=== PATIENT | female | born 1950 | race Caucasian/White ===

== ENCOUNTER 2020-02-10 15:24 | Outpatient (REF) | payer OTHER, SELFPAY ==
[2020-02-10 16:28] LABS: COVID-19 Test Positive (Negative)
== END 2020-02-10 15:25 | disposition home or self-care (01) ==
LOC: HO.LAB 15:24
PROVIDERS: Visit Provider Internal Medicine
DX: Z20.828 Contact with and (suspected) exposure to other viral communicable diseases (principal)
CPT/HCPCS: 87635

== ENCOUNTER → 2020-05-17 08:24 | Outpatient (REF) | payer OTHER, SELFPAY ==
--- NOTE | 2020-05-17 08:29 | CA_ITS ---
Transthoracic Echocardiogram Patient (Last, First, Middle): Kimmy Rios J Gender: Female Date of : 1950 Age: 69 Procedure Date: 05/17/2020 Procedure Type: Transthoracic Echocardiogram Location: OP Height: 170.18 cm Weight: 76.2 kg BSA: 1.88 m2 Heart Rate: bpm BP: 132 / 72 mmHg Wire Weaving Loom Setter: CARLA Referring MD: Asha Anders MD Symptoms: R06.02 - Shortness of breath Study Quality: Fair ECG Rhythm: Sinus Conclusions: - The left ventricular systolic function is normal. The visually estimated ejection fraction is between 55-60%. - There is mild calcification of the aortic valve. - There is mild anterior mitral leaflet thickening. Findings Left Ventricle Normal left ventricular cavity size. There is normal left ventricular wall thickness. The left ventricular systolic function is normal. The visually estimated ejection fraction is between 55-60%. There is no evidence of regional wall motion abnormalities. Diastolic function is normal for age. Right Ventricle Normal right ventricular cavity size and systolic function. Atria Both atria are normal in size. Aortic Valve There is a normal trileaflet aortic valve. There is mild calcification of the aortic valve. There is no aortic valve stenosis. There is trace (trivial) aortic valve regurgitation. Mitral Valve There is mild anterior mitral leaflet thickening. There is trace mitral valve regurgitation. There is no mitral valve stenosis. Pulmonic Valve The pulmonic valve was not well visualized. Tricuspid Valve Normal tricuspid valve structure. There is trace tricuspid valve regurgitation. The pulmonary artery systolic pressure is normal. Great Vessels The aortic annulus, sinuses of valsalva, asc aorta, and aortic arch are normal in size. Venous The inferior vena cava is normal in size and collapses greater than 50% with inspiration. Pericardium/Pleural There is no evidence of pericardial effusion. Prior Study Comparison No prior study available for comparison. Measurements 2D Linear Measurements IVSd: 0.91 0.6-0.9/0.6-1.0 cm LVIDd: 3.82 3.9-5.3/4.2-5.9 cm LVIDd Index: 2.03 2.4-3.2/2.2-3.1 cm/m2 LVIDs: 2.32 2.0-3.6 cm LVPWd: 0.92 0.7-1.1 cm Ao Root: 3.90 2.1-3.5 cm LA Diam: 3.30 2.7-3.8/3.0-4.0 cm LAIDs Index: 1.76 1.5-2.3 cm/m2 LV Mass: 129.21 67-162/88-224 g LV Mass Index: 68.73 43-95/49-115 g/m2 LVOT Diam: 2.00 3.0+(-)1.3 cm 2D Systolic Function EF 4C: 56.70 >55% EF 2C: 61.70 >55% EF BiP: 60.00 >55% Mitral Valve E'Lateral: 7.94 E'Medial: 7.45 Aortic Valve AoV Pk Tommy: 1.42 AoV Mn Tommy: 0.96 AoV VTI: 0.29 AoV Pk Grad: 8.00 Aov Mn Grad: 4.00 GIRMA Cont.VTI: 2.43 LVOT LVOT Pk Tommy: 0.98 LVOT Mn Tommy: 0.64 LVOT VTI: 0.23 LVOT Pk Grad: 4.00 LVOT Mn Grad: 2.00 LVOT Diam: 2.00 LVOT Area: 3.14 Diastolic Function E'Medial: 7.45 E' Laterial: 7.94 Tricuspid Valve TR Pk Tommy: 2.19 TR Pk Grad: 19.00 RA Press: 3.00 RVSP: 22.00 Great Vessels Aorta Ao Root-2D: 3.90 2.0-3.7 cm Ao Asc: 3.50 2.1-3.4 cm Ao Arch: 2.50 Updated in Other Vendor System with Status of Final Cruz Carr MD electronically signed on 05/17/2020 12:50:44 PM with status of Final
--- NOTE | 2020-05-17 08:40 | XR_ITS ---
EXAMINATION: XR CHEST CLINICAL INFORMATION: Shortness of breath COMPARISON: None TECHNIQUE: Frontal view of the chest was obtained. FINDINGS: The lungs are clear. There is no airspace elevation or groundglass opacity. No effusion. The heart is normal in size. The vascularity is unremarkable. No pneumothorax. The hilar contours and mediastinal contours are unremarkable. There are degenerative changes thoracic and upper lumbar spine. XR/XR chest 1V IMPRESSION: Unremarkable examination.
[2020-05-17 09:10] LABS: MANUAL DIFF FLAG NO
[2020-05-17 09:14] LABS: Basophils Absolute Auto 0.1 X10*3/uL (0.0-0.2); Basophils Percent Auto 1.1 % (0-2); Eosinophils Absolute Auto 0.4 X10*3/uL (0.0-0.4); Eosinophils Percent Auto 7.1 % (0-4); Hematocrit 42.2 % (37-47); Hemoglobin 14.3 g/dl (12.0-16.0); Imm Gran Abs Auto 0.03 X10*3/uL (0.00-0.03); Imm Gran Pct Auto 0.6 % (0.0-0.4); Lymphocytes Absolute Auto 1.7 X10*3/uL (1.2-4.9); Lymphocytes Percent Auto 32.6 % (20-40); Mean Corpuscular HGB Conc 33.9 g/dl (31.0-35.0); Mean Corpuscular Hemoglobin 33.6 pg (27.0-33.0); Mean Corpuscular Volume 99.3 fL (80-98); Mean Platelet Volume 9.2 fL (9.4-12.3); Monocytes Absolute Auto 0.4 X10*3/uL (0.1-1.2); Monocytes Percent Auto 7.3 % (2-11); Neutrophils Absolute Auto 2.7 X10*3/uL (2.0-8.3); Neutrophils Percent Auto 51.3 % (45-73); Platelet Count 168 X10*3/uL (160-400); Red Blood Count 4.25 X10*6/uL (4.20-5.50); Red Cell Distribution Width 12.3 % (11.0-16.0); White Blood Count 5.2 X10*3/uL (4.8-10.8)
[2020-05-17 09:30] LABS: Estimated Average Glucose 94 mg/dL; Hemoglobin A1c % 4.9 %
[2020-05-17 09:43] LABS: Alanine Aminotransferase 28 U/L (0-31); Albumin Level 4.5 g/dL (3.5-5.0); Alkaline Phosphatase 72 U/L (39-117); Anion Gap 12 (12-20); Aspartate Amino Transferase 23 U/L (5-31); Bilirubin Total 0.7 mg/dL (0.0-1.0); Blood Urea Nitrogen 15 mg/dL (9-16); Carbon Dioxide 29 mmol/L (22-29); Chloride 105 mmol/L (96-108); Cholesterol 213 mg/dL; Estimated Glomerular Filt Rate > 60; Glucose Fasting 103 mg/dL (60-99); HDL Cholesterol 63 mg/dL; LDL Cholesterol Calculated 121 mg/dl; Sodium 142 mmol/L (135-145); Total Protein 6.7 g/dL (6.5-8.0); Triglycerides 148 mg/dL
[2020-05-17 10:04] LABS: Thyroid Stimulating Hormone 4.36 uIU/mL (0.32-4.0)
--- NOTE | 2020-05-17 17:35 | PFT_ITS ---
FLOWS: FEV1 of 98% of predicted at 2.56 L. FVC 87% of predicted at 2.99 L. FEV1 to FVC ratio of 0.86. No bronchodilator response except in small to medium airways. LUNG VOLUMES: Total lung capacity 89% of predicted at 4.92 L. Residual volume 89% of predicted at 2.08 L. Slow vital capacity 88% of predicted at 2.84 L. Expiratory reserve volume 24% of predicted at 0.21 L. Diffusion capacity is mildly decreased. IMPRESSION: No obstructive or restrictive ventilatory defect. No bronchodilator response except in small to medium airways. Decreased diffusion capacity suggests emphysema. MD FRANKLYN Campo/MODL / [id number]
== END ==
LOC: HO.CARD 08:24
PROVIDERS: PCP Internal Medicine; Visit Provider Internal Medicine
DX: J44.9 Chronic obstructive pulmonary disease, unspecified (principal); U07.1 COVID-19; E78.00 Pure hypercholesterolemia, unspecified; I10 Essential (primary) hypertension
CPT/HCPCS: 36415; 71045; 80053; 80061; 83036; 84443; 85025; 93306; 94060; 94727; 94729

== ENCOUNTER 2020-08-03 08:32 | Outpatient (REF) | payer MEDICARE, SELFPAY ==
[2020-08-03 12:15] LABS: TSH reflex Free T4 4.13 uIU/mL (0.32-4.0)
[2020-08-03 12:20] LABS: Iron 79 mcg/dL (30-160); Percent Iron Saturation 29 % (15-50); Total Iron Binding Capacity 277 mcg/dL (228-428); Unsaturated Iron Binding 198 ug/dL
== END 2020-08-03 08:33 | disposition home or self-care (01) ==
LOC: HO.HMGCLDS 08:32
PROVIDERS: PCP Internal Medicine; Visit Provider Internal Medicine
DX: E03.9 Hypothyroidism, unspecified (principal); E78.00 Pure hypercholesterolemia, unspecified; I10 Essential (primary) hypertension; J44.9 Chronic obstructive pulmonary disease, unspecified; R06.02 Shortness of breath
CPT/HCPCS: 36415; 83540; 84439; 84443

== ENCOUNTER 2020-09-26 08:06 | Outpatient (REF) | payer MEDICARE, SELFPAY ==
--- NOTE | ~2020-09-26 | MM_ITS ---
EXAMINATION: MM SCREENING DIGITAL BREAST TOMOSYNTHESIS, BILATERAL CLINICAL INFORMATION: Screening. Asymptomatic. The lifetime risk of breast cancer based on the Tyrer-Cuzick Model is 7%. COMPARISON: Mammography: 11/26/2018, 04/16/2012 TECHNIQUE: Digital breast tomosynthesis is performed in both the craniocaudal and mediolateral oblique views along with computer-aided detection (CAD). Synthesized 2D images are generated from the tomosynthesis. FINDINGS: There are scattered areas of fibroglandular density (ACR BI-RADS breast composition Category b). There are no significant masses, abnormal calcifications, or other abnormalities. Parenchymal pattern is similar to prior exams. Scattered minor asymmetries are stable. No developing density. The axilla and skin contours are unremarkable. MM/MM tomosynthesis screening BI IMPRESSION: No mammographic evidence of malignancy. ASSESSMENT: BI-RADS 2: Benign RECOMMENDATION: Routine annual mammography screening. This patient's information was entered into a reminder system with a target due date for their next mammogram.
== END 2020-09-26 08:07 | disposition home or self-care (01) ==
LOC: HO.MAMMO 08:06
PROVIDERS: PCP Internal Medicine; Visit Provider Internal Medicine
DX: Z12.31 Encounter for screening mammogram for malignant neoplasm of breast (principal)
CPT/HCPCS: 77063; 77067

== ENCOUNTER 2020-10-31 17:56 | Emergency (ER) | payer OTHER, MEDICARE, SELFPAY ==
[2020-10-31 19:42] VITALS: BP 177/71; PULSE 73; RESP 16; TEMP 36.6; O2SAT 93; BMI 27.1
--- NOTE | 2020-10-31 20:27 | ED_ITS ---
HPI - Animal Bite General Chief Complaint: Animal Bite Stated Complaint: dog bite Time Seen by Provider: 10/31/20 20:22 Source: patient Mode of arrival: ambulatory History of Present Illness HPI narrative: 61-year-old female with a past medical history of arthritis, COPD, depression, HTN, HLD, hypothyroid, presenting to the ED complaining dog bite to right arm/right leg around 12:00 p.m. today. Reports was going to client's house when dog jumped on/attacked her. Per client dog is up-to-date on all vaccinations. Patient's tetanus is unknown. Denies fever, chills complaint: animal bite Related Data Home Medications Medication Instructions Recorded Confirmed omeprazole 20 mg capsule,delayed 20 mg PO DAILY 02/12/20 08/03/20 release Previous Rx's Medication Instructions Recorded lisinopril 10 mg tablet 10 mg PO DAILY #90 tab 02/01/20 albuterol sulfate 90 mcg/actuation 2 puff INHALATION Q6H PRN #6.7 g 02/12/20 aerosol inhaler citalopram 40 mg tablet 40 mg PO DAILY #90 tab 05/03/20 budesonide-formoterol HFA 80 2 puff INHALATION BID 30 Days 05/25/20 mcg-4.5 mcg/actuation aerosol #10.2 g inhaler atorvastatin 40 mg tablet 40 mg PO DAILY #90 tab 05/27/20 meloxicam 15 mg tablet 15 mg PO DAILY #90 tab 07/25/20 amoxicillin-pot clavulanate 1 tab PO Q12H 7 Days #14 tab 10/31/20 [Augmentin] Allergies Allergy/AdvReac Type Severity Reaction Status Date / Time Sulfa (Sulfonamide Allergy Mild RASH Verified 10/31/20 19:52 Antibiotics) [Sulfa (Sulfonamides)] Review of Systems Review of Systems: Constitutional: No Fever, No Chills Musculoskeletal: + joint pain, No Myalgias, No Joint Swelling Skin: + Skin Lesions, No rash Neuro: No Weakness, No Numbness, No Paresthesias Yes all other systems are reviewed and are negative [facility] Past Medical History Attestation statement: The following information was validated with the patient. Medical History (Updated 10/31/20 @ 20:35 by NALLELY Mahmood) Arthritis COPD (chronic obstructive pulmonary disease) COVID-19 virus detected Depression HTN (hypertension) Hypercholesteremia Hypothyroidism Left shoulder tendinitis SOB (shortness of breath) Surgical History H/O colonoscopy History of bunionectomy History of cataract surgery History of tonsillectomy S/P foot surgery Family History Family History (Updated 02/10/20 @ 08:38 by Sosa Nguyen, ROEL, SUCTION DRUM DRIER OPERATOR) Father Heart disease Diabetes mellitus Mother HTN (hypertension) ESRD (end stage renal disease) Maternal Grandmother Breast cancer Sister IDDM (insulin dependent diabetes mellitus) Social History Social History (Updated 02/12/20 @ 08:06 by Archana Wiley RN) Advance Directives: No Advance Directives Information Provided: Yes Physical Exam Vital Signs: Vital Signs: Last Vital Signs Temp 97.8 F 10/31/20 19:42 Pulse 73 10/31/20 19:42 Resp 16 10/31/20 19:42 BP 177/71 H 10/31/20 19:42 Pulse Ox 93 10/31/20 19:42 Body Mass Index 27.1 Const: General: cooperative, healthy appearing and no acute distress Orientation/consciousness: patient oriented x3 Limitations: no limitations HENMT: Head: Yes normal to inspection Ears: hearing grossly normal bilaterally General nose exam: Normal external nose present Face and sinus: Yes normal facial exam Eyes: General: appearance normal, both eyes and all related structures EOM: EOMs intact bilaterally Neck: Neck: Yes normal visual inspection Resp: Effort & Inspection: normal respiratory effort Cardio: Rate: regular rate Skin: Other: + puncture wound/small laceration noted to right forearm with small ecchymosis + flap laceration noted to right young Ecchymosis noted to right thigh Rashes: no rashes Neuro: General: patient oriented x3, tone normal and moves all extremities Gait exam (Neuro): Normal gait present Extrem: General: Yes normal to inspection MDM - Animal Bite MDM Narrative Medical decision making narrative: 61-year-old female with a past medical history of arthritis, COPD, depression, HTN, HLD, hypothyroid, presenting to the ED complaining dog bite to right arm/right leg around 12:00 p.m. today. On exam VS as, NAD/well-appearing, physical exam as above. Will clean wounds with Betadine, dress with bacitracin/nonstick, update patient's tetanus and prescribed Augmentin. Dog is up-to-date on vaccinations Discharge Plan Discharge Clinical Impression: Dog bite Patient Disposition: Home, Self-Care Instructions: Animal Bite (ED) Additional Instructions: We updated her tetanus today in the emergency department Augmentin is an antibiotic please take as prescribed It is important to verify the dog is up-to-date on rabies vaccinations If her dog bites/scratches begin to look infected, red, they have pus drainage, or you develop fever please return to the ED Keep areas clean, apply bacitracin or Neosporin Prescriptions: New amoxicillin-pot clavulanate [Augmentin] 875-125 mg tablet 1 tab PO Q12H 7 Days Qty: 14 RF: 0 No Action lisinopril 10 mg tablet 10 mg PO DAILY Qty: 90 RF: 2 citalopram 40 mg tablet 40 mg PO DAILY Qty: 90 RF: 3 atorvastatin 40 mg tablet 40 mg PO DAILY Qty: 90 RF: 3 meloxicam 15 mg tablet 15 mg PO DAILY Qty: 90 RF: 0 omeprazole 20 mg capsule,delayed release(DR/EC) 20 mg PO DAILY RF: 0 albuterol sulfate [ProAir HFA] 90 mcg/actuation HFA aerosol inhaler 2 puff inhalation Q6H PRN (Reason: shortness of breath or wheezing) Qty: 6.7 RF: 3 budesonide-formoterol [Symbicort] 80-4.5 mcg/actuation HFA aerosol inhaler 2 puff inhalation BID 30 Days Qty: 10.2 RF: 4 Referrals: Asha Anders MD [Primary Care Provider] - 1 week
[2020-10-31] MEDS: Amoxicillin/Potassium Clav 875 MG TABLET PO (21:01)
[2020-10-31] MEDS: Diphth,Pertus(ACell),Tet Adult 0.5 ML SYRINGE IM (21:01)
== END 2020-10-31 21:26 | disposition home or self-care (01) ==
PROVIDERS: Emergency Provider Internal Medicine; PCP Internal Medicine
DX: S41.151A Open bite of right upper arm, initial encounter (principal); S70.11XA Contusion of right thigh, initial encounter; M79.601 Pain in right arm; M79.651 Pain in right thigh; W54.0XXA Bitten by dog, initial encounter; Y93.9 Activity, unspecified; Y92.009 Unspecified place in unspecified non-institutional (private) residence as the place of occurrence of the external cause; Y99.9 Unspecified external cause status; Z79.899 Other long term (current) drug therapy
CPT/HCPCS: 90471; 90715; 99283; 99284

== ENCOUNTER 2021-02-24 07:13 | Outpatient (REF) | payer MEDICARE, SELFPAY ==
[2021-02-24 12:15] LABS: Alanine Aminotransferase 25 U/L (0-31); Albumin Level 4.4 g/dL (3.5-5.0); Alkaline Phosphatase 75 U/L (39-117); Anion Gap 11 (12-20); Aspartate Amino Transferase 20 U/L (5-31); Bilirubin Total 0.9 mg/dL (0.0-1.0); Blood Urea Nitrogen 13 mg/dL (9-16); Calcium 8.6 mg/dL (8.4-10.2); Carbon Dioxide 27 mmol/L (22-29); Chloride 106 mmol/L (96-108); Cholesterol 210 mg/dL; Estimated Glomerular Filt Rate > 60; Glucose Fasting 107 mg/dL (60-99); HDL Cholesterol 59 mg/dL; LDL Cholesterol Calculated 107 mg/dl; Potassium 4.1 mmol/L (3.3-5.1); Sodium 140 mmol/L (135-145); Total Protein 6.4 g/dL (6.5-8.0); Triglycerides 224 mg/dL
[2021-02-24 12:29] LABS: TSH reflex Free T4 6.94 uIU/mL (0.32-4.0)
[2021-02-24 13:11] LABS: Free T4 (Free Thyroxine) 0.84 ng/dL (0.71-1.85)
== END 2021-02-24 07:14 | disposition home or self-care (01) ==
LOC: HO.HMGCLDS 07:13
PROVIDERS: PCP Internal Medicine; Visit Provider Internal Medicine
DX: E03.9 Hypothyroidism, unspecified (principal); J44.9 Chronic obstructive pulmonary disease, unspecified; I10 Essential (primary) hypertension
CPT/HCPCS: 36415; 80053; 80061; 84439; 84443

== ENCOUNTER 2021-05-19 14:07 | Outpatient (REF) | payer MEDICARE, SELFPAY ==
[2021-05-19 16:59] LABS: TSH reflex Free T4 3.45 uIU/mL (0.32-4.0)
== END 2021-05-19 14:08 | disposition home or self-care (01) ==
LOC: HO.HMGCLDS 14:07
PROVIDERS: Visit Provider Internal Medicine
DX: E03.9 Hypothyroidism, unspecified (principal)
CPT/HCPCS: 36415; 84443

== ENCOUNTER 2021-06-01 14:35 | Outpatient (REF) | payer MEDICARE, SELFPAY ==
--- NOTE | ~2021-06-01 | XR_ITS ---
EXAMINATION: AP BILATERAL KNEE AND RIGHT KNEE. CLINICAL INFORMATION: Pain right knee. COMPARISON: None TECHNIQUE: AP bilateral knee 1 view standing. Right knee 2 views. FINDINGS: AP BILATERAL KNEE: There is severe loss of medial compartment right knee and mild to moderate loss of medial and lateral compartment left knee. Mild periarticular spurring lateral compartment left knee and medial compartment right knee is noted. RIGHT KNEE: There is mild loss of patellofemoral compartment joint space right knee with inferior periarticular spurring. There is mild suprapatellar joint effusion. No loose body seen. XR/XR knee RT 2V IMPRESSION: Mild degenerative changes patellofemoral compartment. Mild suprapatellar joint effusion is noted.
--- NOTE | ~2021-06-01 | XR_ITS ---
EXAMINATION: AP BILATERAL KNEE AND RIGHT KNEE. CLINICAL INFORMATION: Pain right knee. COMPARISON: None TECHNIQUE: AP bilateral knee 1 view standing. Right knee 2 views. FINDINGS: AP BILATERAL KNEE: There is severe loss of medial compartment right knee and mild to moderate loss of medial and lateral compartment left knee. Mild periarticular spurring lateral compartment left knee and medial compartment right knee is noted. RIGHT KNEE: There is mild loss of patellofemoral compartment joint space right knee with inferior periarticular spurring. There is mild suprapatellar joint effusion. No loose body seen. XR/XR knee standing BI IMPRESSION: Mild degenerative changes patellofemoral compartment. Mild suprapatellar joint effusion is noted.
== END 2021-06-01 14:36 | disposition home or self-care (01) ==
LOC: HO.HOSX 14:35
PROVIDERS: Visit Provider Physician Assistant
DX: M17.11 Unilateral primary osteoarthritis, right knee (principal)
CPT/HCPCS: 20610; 73560; 73565; 99202; J1040

== ENCOUNTER → 2021-07-13 09:45 | Outpatient (BNVA) | payer MEDICARE, SELFPAY | PROVIDERS: PCP Internal Medicine; Visit Provider Physician Assistant | DX: M17.11 Unilateral primary osteoarthritis, right knee (principal) | CPT/HCPCS: 99212 ==

== ENCOUNTER 2021-11-30 06:28 | Outpatient (REF) | payer MEDICARE, SELFPAY ==
[2021-11-30 11:33] LABS: MANUAL DIFF FLAG NO
[2021-11-30 11:49] LABS: Basophils Absolute Auto 0.1 X10*3/uL (0.0-0.2); Eosinophils Absolute Auto 0.4 X10*3/uL (0.0-0.4); Eosinophils Percent Auto 6.8 % (0-4); Hematocrit 42.3 % (37.0-47.0); Hemoglobin 14.4 g/dl (12.0-16.0); Imm Gran Abs Auto 0.06 X10*3/uL (0.00-0.03); Lymphocytes Absolute Auto 1.5 X10*3/uL (1.2-4.9); Lymphocytes Percent Auto 24.4 % (20-40); Mean Corpuscular Hemoglobin 33.8 pg (27.0-33.0); Mean Corpuscular Volume 99.3 fL (80.0-98.0); Mean Platelet Volume 9.1 fL (9.4-12.3); Monocytes Absolute Auto 0.4 X10*3/uL (0.1-1.2); Neutrophils Absolute Auto 3.6 x10*3/uL (2.0-8.3); Neutrophils Percent Auto 59.8 % (45-73); Platelet Count 175 X10*3/uL (160-400); Red Blood Count 4.26 X10*6/uL (4.20-5.50); Red Cell Distribution Width 12.6 % (11.0-16.0)
[2021-11-30 12:28] LABS: Alanine Aminotransferase 22 U/L (0-31); Albumin Level 4.2 g/dL (3.5-5.0); Alkaline Phosphatase 69 U/L (39-117); Anion Gap 14 (12-20); Aspartate Amino Transferase 15 U/L (5-31); Bilirubin Total 0.9 mg/dL (0.0-1.0); Blood Urea Nitrogen 16 mg/dL (9-16); Calcium 8.9 mg/dL (8.4-10.2); Carbon Dioxide 28 mmol/L (22-29); Chloride 103 mmol/L (96-108); Cholesterol 235 mg/dL; Estimated Glomerular Filt Rate > 60; Glucose Fasting 94 mg/dL (60-99); HDL Cholesterol 64 mg/dL; LDL Cholesterol Calculated 125 mg/dl; Sodium 141 mmol/L (135-145); Total Protein 6.3 g/dL (6.5-8.0); Triglycerides 232 mg/dL
[2021-11-30 12:29] LABS: TSH reflex Free T4 6.25 uIU/mL (0.32-4.0)
[2021-11-30 13:19] LABS: Free T4 (Free Thyroxine) 0.97 ng/dL (0.71-1.85)
== END 2021-11-30 06:29 | disposition home or self-care (01) ==
LOC: HO.HMGCLDS 06:28
PROVIDERS: PCP Internal Medicine; Visit Provider Internal Medicine
DX: E03.9 Hypothyroidism, unspecified (principal); E78.00 Pure hypercholesterolemia, unspecified; I10 Essential (primary) hypertension
CPT/HCPCS: 36415; 80053; 80061; 84439; 84443; 85025

== ENCOUNTER 2022-01-19 07:38 | Outpatient (REF) | payer MEDICARE, SELFPAY ==
[2022-01-19 12:44] LABS: Alanine Aminotransferase 44 U/L (0-31); Albumin Level 4.6 g/dL (3.5-5.0); Alkaline Phosphatase 75 U/L (39-117); Anion Gap 14 (12-20); Aspartate Amino Transferase 26 U/L (5-31); Bilirubin Total 0.6 mg/dL (0.0-1.0); Blood Urea Nitrogen 12 mg/dL (9-16); Calcium 9.4 mg/dL (8.4-10.2); Carbon Dioxide 28 mmol/L (22-29); Chloride 103 mmol/L (96-108); Cholesterol 237 mg/dL; Estimated Glomerular Filt Rate > 60; Glucose Fasting 107 mg/dL (60-99); HDL Cholesterol 63 mg/dL; LDL Cholesterol Calculated 140 mg/dl; Potassium 4.2 mmol/L (3.3-5.1); Sodium 141 mmol/L (135-145); Total Protein 6.7 g/dL (6.5-8.0); Triglycerides 171 mg/dL
[2022-01-19 12:52] LABS: TSH reflex Free T4 3.28 uIU/mL (0.32-4.0)
[2022-01-19 13:11] LABS: Folate > 20.0 ng/mL (> or = 4.0); Vitamin B12 386 pg/mL (200-900)
== END 2022-01-19 07:39 | disposition home or self-care (01) ==
LOC: HO.HMGCLDS 07:38
PROVIDERS: PCP Internal Medicine; Visit Provider Internal Medicine
DX: Z00.00 Encounter for general adult medical examination without abnormal findings (principal); E78.00 Pure hypercholesterolemia, unspecified; I10 Essential (primary) hypertension; E53.8 Deficiency of other specified B group vitamins; E03.9 Hypothyroidism, unspecified
CPT/HCPCS: 36415; 80053; 80061; 82607; 82746; 84443

== ENCOUNTER → 2022-05-04 11:41 | Outpatient (BNVA) | payer MEDICARE, SELFPAY | PROVIDERS: PCP Internal Medicine; Visit Provider Orthopaedic Surgery | DX: M17.11 Unilateral primary osteoarthritis, right knee (principal) | CPT/HCPCS: 20610; 99212; J1100 ==

== ENCOUNTER 2022-07-25 07:18 | Outpatient (REF) | payer MEDICARE, SELFPAY ==
[2022-07-25 11:12] LABS: MANUAL DIFF FLAG NO
[2022-07-25 11:50] LABS: Basophils Absolute Auto 0.1 X10*3/uL (0.0-0.2); Basophils Percent Auto 1.1 % (0-2); Eosinophils Absolute Auto 0.3 X10*3/uL (0.0-0.4); Hematocrit 42.7 % (37.0-47.0); Hemoglobin 14.2 g/dl (12.0-16.0); Imm Gran Abs Auto 0.02 X10*3/uL (0.00-0.03); Imm Gran Pct Auto 0.4 % (0.0-0.4); Lymphocytes Absolute Auto 1.9 X10*3/uL (1.2-4.9); Lymphocytes Percent Auto 32.7 % (20-40); Mean Corpuscular HGB Conc 33.3 g/dl (31.0-35.0); Mean Corpuscular Hemoglobin 32.9 pg (27.0-33.0); Mean Corpuscular Volume 98.8 fL (80.0-98.0); Mean Platelet Volume 9.7 fL (9.4-12.3); Monocytes Absolute Auto 0.5 X10*3/uL (0.1-1.2); Monocytes Percent Auto 7.9 % (2-11); Neutrophils Percent Auto 51.9 % (45-73); Platelet Count 189 X10*3/uL (160-400); Red Blood Count 4.32 X10*6/uL (4.20-5.50); Red Cell Distribution Width 12.7 % (11.0-16.0); White Blood Count 5.7 X10*3/uL (4.8-10.8)
[2022-07-25 12:04] LABS: Alanine Aminotransferase 26 U/L (0-31); Albumin Level 4.3 g/dL (3.5-5.0); Alkaline Phosphatase 76 U/L (39-117); Anion Gap 12 (12-20); Aspartate Amino Transferase 19 U/L (5-31); Bilirubin Total 0.8 mg/dL (0.0-1.0); Blood Urea Nitrogen 15 mg/dL (9-16); Calcium 9.5 mg/dL (8.4-10.2); Carbon Dioxide 28 mmol/L (22-29); Chloride 105 mmol/L (96-108); Cholesterol 194 mg/dL; Estimated Glomerular Filt Rate > 60; Glucose Fasting 101 mg/dL (60-99); HDL Cholesterol 61 mg/dL; LDL Cholesterol Calculated 98 mg/dl; Potassium 4.2 mmol/L (3.3-5.1); Sodium 141 mmol/L (135-145); Total Protein 6.3 g/dL (6.5-8.0); Triglycerides 179 mg/dL
[2022-07-25 12:16] LABS: Folate 15.8 ng/mL (> or = 4.0); TSH reflex Free T4 5.46 uIU/mL (0.32-4.0); Vitamin B12 450 pg/mL (200-900)
[2022-07-25 12:48] LABS: Free T4 (Free Thyroxine) 0.93 ng/dL (0.71-1.85)
== END 2022-07-25 07:19 | disposition home or self-care (01) ==
LOC: HO.HMGCLDS 07:18
PROVIDERS: PCP Internal Medicine; Visit Provider Internal Medicine
DX: E03.9 Hypothyroidism, unspecified (principal); I10 Essential (primary) hypertension; E53.8 Deficiency of other specified B group vitamins; E78.00 Pure hypercholesterolemia, unspecified
CPT/HCPCS: 36415; 80053; 80061; 82607; 82746; 84439; 84443; 85025

== ENCOUNTER 2022-10-31 08:03 | Outpatient (REF) | payer MEDICARE, SELFPAY ==
[2022-10-31 12:43] LABS: TSH reflex Free T4 3.95 uIU/mL (0.32-4.0)
== END 2022-10-31 08:04 | disposition home or self-care (01) ==
LOC: HO.HMGCLDS 08:03
PROVIDERS: PCP Internal Medicine; Visit Provider Internal Medicine
DX: E03.9 Hypothyroidism, unspecified (principal)
CPT/HCPCS: 36415; 84443

== ENCOUNTER 2023-01-10 06:52 | Outpatient (REF) | payer MEDICARE, SELFPAY ==
[2023-01-10 12:31] LABS: Vitamin B12 572 pg/mL (200-900)
[2023-01-14 19:53] LABS: Glutamic acid decarboxylase Ab <5 IU/mL (<5)
== END 2023-01-10 06:53 | disposition home or self-care (01) ==
LOC: HO.HMGCLDS 06:52
PROVIDERS: PCP Internal Medicine; Visit Provider Internal Medicine
DX: H55.00 Unspecified nystagmus (principal)
CPT/HCPCS: 36415; 82607; 86255; 86341

== ENCOUNTER 2023-01-31 08:56 | Outpatient (AMB) | payer MEDICARE, SELFPAY ==
[2023-01-31 08:58] VITALS: BP 124/80; PULSE 70; O2SAT 97; BMI 26.8
--- NOTE | 2023-01-31 08:59 | AM.OFFVISMDC ---
Intake Vital Signs 01/31/23 08:58 Height 5 ft 6 in Weight 166 lb BMI 26.8 BP 124/80 Blood Pressure Location Lt brachial Position Sitting Pulse 70 Pulse Source Pulse Oximeter Pulse Oximetry (%) 97 Oxygen Delivery Method Room Air Intake Visit Reasons: AWV G0438 Intake Note: Pt is here today for AWV. Allergies Sulfa (Sulfonamide Antibiotics) Allergy (Verified 01/31/23 09:11) Rash Medication List - Last Reconciled 01/31/23 by Asha Anders MD albuterol sulfate 90 mcg/actuation 2 puffs inhalation Q6H PRN aspirin 81 mg PO DAILY atorvastatin 40 mg PO DAILY citalopram 40 mg PO DAILY levothyroxine 50 mcg PO DAILY lisinopril 5 mg PO DAILY lisinopril 10 mg PO DAILY omeprazole 20 mg PO DAILY HPI HPI Comments History of Present Illness Details Pt presents for annual. Patient has been under lot of stress related to her family situation. Her grandson living at her house and using drugs. Initiated the conversation about Advanced Directives. Advanced Directives help? patients prepare for current and future decisions about their medical treatment? and place of care. Discussed with patient that it is a process where a patients? current condition and prognosis are reviewed, their wishes for information? regarding their illness are elicited, and likely medical dilemmas are presented? and options discussed. The form can be amended as needed, reviewed yearly and? make changes as needed IPPE/AWV ? year old presents? for her ? Annual? Wellness Visit, initial visit.? Medical / Social History Reviewed? Past Medical History ?Yes? . ? [place]? of Care / Care Team list updated ?Yes . ? Surgical/Hospitalization? History ?Yes . ? Current Medications? (including OTC and supplements) ?Yes . ? Family History ?Yes? . ? Tobacco? Control form ?Yes . ? AUDIT-C (Alcohol use) form? ?Yes . ? Illicit drug use in Social? History ?Yes . ? Current diagnosis of? depression? ?No ? Appropriate PHQ2/PHQ9? completed ?Yes . ? Data entered by ?Medical? Electronic Instrument Trades Worker and reviewed by provider ? Fall Risk ? Fall? History? Have you had any falls with? injury in the past year? ?No . ? Have you had two or more? falls in the past year? ?No . ? Fall Risk Assessment: ?No? falls in the past year . ? HRA filled out by? the patient, reviewed by Provider and scanned. ? IPPE/AWV ? Balance? [place]? ?Yes . ? Tandem? walk ?Yes . ? Walk and? Turn ?Yes . ? Rise from? sit to stand ?Yes . ?Vision? Corrective? lens ?Yes ? Vision? screen ? Up-to-date, has an appointment [] for vision? screening and glaucoma screening ?Hearing? Whisper? test ?pass .? Initiated the conversation about Advanced Directives. Advanced Directives help? patients prepare for current and future decisions about their medical treatment? and place of care. Discussed with patient that it is a process where a patients? current condition and prognosis are reviewed, their wishes for information? regarding their illness are elicited, and likely medical dilemmas are presented? and options discussed. The form can be amended as needed, reviewed yearly and? make changes as needed Written? Plan?Completed. See Patient? Documents. [facility] Medical History Annual physical exam Arthritis COPD (chronic obstructive pulmonary disease) COVID-19 virus detected Depression HTN (hypertension) Hypercholesteremia Hypothyroidism Left shoulder tendinitis SOB (shortness of breath) Surgical History H/O colonoscopy History of bunionectomy History of cataract surgery History of tonsillectomy S/P foot surgery Family History Father Heart disease Diabetes mellitus Mother HTN (hypertension) ESRD (end stage renal disease) Maternal Grandmother Breast cancer Sister IDDM (insulin dependent diabetes mellitus) Son Substance use disorder Social History Housing: House Patient Tobacco Use Status: Never used Tobacco e-Cigarette/Vaping Use: Never Used Current occupational status: employed and retired Cognitive needs: No Hearing needs: No Vision needs: Yes Questionnaire Medicare Wellness Checkup [age] What gender do you identify with?: female During the past 4 weeks, how much have you been bothered by emotional problems such as feeling anxious, depressed, irritable, sad or downhearted, and blue?: slightly During the past 4 weeks, has your physical & emotional health limited your social activities with family, friends, neighbors, or groups?: slightly During the past 4 weeks, how much bodily pain have you generally had?: very mild pain During the past 4 weeks, was someone available to help you if you needed & wanted help?: yes, as much as I wanted During the past 4 weeks, what was the hardest physical activity you could do for at least 2 minutes?: moderate Can you get to places out of walking distance without help? (For eg., can you travel alone on buses, taxis or drive your car?): Yes Can you go shopping for groceries or clothes without someone's help?: Yes Can you prepare your own meals?: Yes Can you do your housework without help?: Yes Because of any health problems, do you need the help of another person with your personal care needs such as eating, bathing, dressing or getting around the house?: No Can you handle your own money without help?: Yes During the past 4 weeks, how would you rate your health in general?: very good During the past 4 weeks how have things been going for you?: good & bad parts about equal Are you having difficulties driving your car?: no Do you always fasten your seat belt when you are in a car?: yes, usually During past 4 weeks, have you been bothered by the following: never: Sexual problems?, Trouble eating well? and Problems using the telephone?, seldom: Teeth or denture problems? and sometimes: Falling or dizzy when standing up and Tiredness or fatigue? Have you fallen 2 or more times in the past year?: No Are you afraid of falling?: No Are you a smoker?: no During the past 4 weeks, how many drinks of wine, beer, or other alcoholic beverages did you have?: 6-9 drinks per week Do you exercise for about 20 minutes 3 or more times a week?: no, I usually do not exercise this much Have you been given information to help with the following?: no: Hazards in your house that might hurt you? and no: Keeping track of your medications? How often do you have trouble taking medicines the way you have been told to take them?: I always take medicine as prescribed How confident are you that you can control & manage most of your health problems?: very confident What is your race?: White Mini Mental State Exam (MMSE) Orientation What is the (year) (season) (date) (day) (month)?: year, season, date, day and month Where are we (state) (county) (town or city) (hospital) (floor)?: state, county, town or city, hospital/clinic and floor Registration Name of 3 unrelated objects clearly and slowly, then ask patient to repeat all 3 of them. (1st repeat determines score. Make sure they can repeat all three): object 1, object 2 and object 3 Attention & Calculation (CHOOSE ONE) Spell WORLD backwards (DLROW): 5 letters Recall Ask patient to repeat the 3 items from question #3.: object 1, object 2 and object 3 Language Show patient a wristwatch & ask what it is. Repeat for pencil.: watch and pencil Ask the patient to repeat the phrase 'No ifs, ands, or buts' after you.: correct Ask the patient to 'take a piece of paper with their right hand' 'fold paper in half' 'place paper on floor': take paper in right hand, fold paper in half and place paper on floor Print the sentence 'CLOSE YOUR EYES' on a piece. If patient actually closes eyes then score.: followed written direction Give patient a blank piece of paper & ask to write a sentence. Score if it contains a noun & verb.: sentence contains subject and verb Ask patient to copy figure of intersecting pentagons exactly. Score if all 10 angles & 2 intersects are included.: all 10 angles present & 2 are intersected Score Score: 30 Activity of Daily Living Bathing - sponge bath, tub bath or shower: receives no assistance (gets in/out by self, if usual bathing means Dressing - getting clothes from closets & drawers, including inner/outer garments & fasteners.: gets clothes & gets completely dressed without help Toileting - going to the 'toilet room' for urine/bowel elimination & cleaning self/arranging clothes: goes to toilet room, cleans self, arranges clothes without help Transfer: moves in & out of bed and chair without help (may use support object) Continence: controls urination/bowel movements completely by self Feeding: feeds self without help Total Score: 0 Information obtained from: patient Using telephone: independent Traveling: independent Shopping: independent Preparing meals: independent Housework: independent Taking medicine: independent Managing money: independent PHQ-9 Over the last 2 weeks, how often have you been bothered by any of the following problems? 1. Little interest or pleasure in doing things: not at all 2. Feeling down, depressed, or hopeless: not at all 3. Trouble falling or staying asleep, or sleeping too much: not at all 4. Feeling tired or having little energy: not at all 5. Poor appetite or overeating: not at all 6. Feeling bad about yourself - or that you are a failure or have let yourself or your family down: not at all 7. Trouble concentrating on things, such as reading the newspaper or watching television: not at all 8. Moving or speaking so slowly that other people could have noticed. Or the opposite - being so fidgety or restless that you have been moving around a lot more than usual: not at all 9. Thoughts that you would be better off or of hurting yourself in some way: not at all Total score: 0 Depression Screening Interpretation: Negative Depression Screening Done: Yes Source: Developed by Drs. Marcos Franco, Crista Chavez, Ben Laird and colleagues, with an educational christiano from [employer]. Review of Systems Const All systems reviewed & are unremarkable except as noted in HPI and below Reports no additional complaints Eyes Reports no additional complaints ENT Reports no additional complaints Card Reports no additional complaints Resp Reports no additional complaints GI Reports no additional complaints Reports no additional complaints Physical Exam Vital Signs: Last Vital Signs Pulse 70 01/31/23 08:58 BP 124/80 01/31/23 08:58 Pulse Ox 97 01/31/23 08:58 Oxygen Delivery Method Room Air 01/31/23 08:58 BMI result Body Mass Index 26.8 Const General: no acute distress HEENT Head: Yes normal to inspection Ears: hearing grossly normal bilaterally General nose exam: Normal external nose present Face and sinus: Yes normal facial exam Mouth: Normal oral and palatal mucosa present Throat: Yes posterior oropharynx normal Eyes General: appearance normal, both eyes and all related structures Neck Neck: Yes no lymphadenopathy and Yes supple Resp Effort & Inspection: normal respiratory effort Auscultation: clear to auscultation bilaterally Cardio Rhythm: regular rhythm Heart sounds: S1 normal heart sound present and S2 normal heart sound present GI Inspection: Yes normal to inspection Palpation (GI): Soft to palpation Percussion: Yes normal to percussion Auscultation: normal bowel sounds Extrem General: Yes no clubbing, cyanosis or edema Assessment & Plan Assessment & Plan (1) Annual physical exam: Code(s): Z00.00 - Encounter for general adult medical examination without abnormal findings Plan: Well-balanced diet and regular physical activity discussed with the patient. She will schedule mammogram and is up to date with colonoscopy (2) Hypothyroidism: Code(s): E03.9 - Hypothyroidism, unspecified Plan: Continue levothyroxine (3) COPD (chronic obstructive pulmonary disease): Comment: PFT mild emphysema 04/2020, CXR nl 04/2020, never smoked Code(s): J44.9 - Chronic obstructive pulmonary disease, unspecified (4) HTN (hypertension): Comment: BP goal < 130/80 Code(s): I10 - Essential (primary) hypertension Plan: Continue current medications (5) Hypercholesteremia: Code(s): E78.00 - Pure hypercholesterolemia, unspecified Plan: Continue statin .pt will return in 6 months with a fasting labs before Quality Reporting (2019) Depression/Bipolar (159/160/161/177) PHQ-9: Total score: 0 Coding Level of Care Code Medicare Subsequent (G0439) Diagnoses Annual physical exam Z00.00 Hypothyroidism E03.9 COPD (chronic obstructive pulmonary disease) J44.9 HTN (hypertension) I10 Hypercholesteremia E78.00 CPT Codes Advance Care Planning - Time spent: 1-15 minutes, not on file ([id number]) Advance Care Planning Advance Care Planning discussion: Exists, not on file Forms completed: Health Care Proxy Time spent: 1-15 minutes, not on file
== END 2023-01-31 09:46 | disposition home or self-care (01) ==
PROVIDERS: Visit Provider Internal Medicine
DX: Z00.00 Encounter for general adult medical examination without abnormal findings (principal); E03.9 Hypothyroidism, unspecified; J44.9 Chronic obstructive pulmonary disease, unspecified; I10 Essential (primary) hypertension; E78.00 Pure hypercholesterolemia, unspecified
CPT/HCPCS: 1124F; G0439

== ENCOUNTER 2023-04-26 07:21 | Outpatient (REF) | payer MEDICARE, SELFPAY ==
[2023-04-26 12:08] LABS: Alanine Aminotransferase 26 U/L (0-31); Albumin Level 4.2 g/dL (3.5-5.0); Alkaline Phosphatase 74 U/L (39-117); Anion Gap 13 (12-20); Aspartate Amino Transferase 23 U/L (5-31); Bilirubin Total 0.7 mg/dL (0.0-1.0); Blood Urea Nitrogen 15 mg/dL (9-16); Calcium 9.3 mg/dL (8.4-10.2); Carbon Dioxide 29 mmol/L (22-29); Chloride 105 mmol/L (96-108); Cholesterol 192 mg/dL (<200); Estimated Glomerular Filt Rate > 60; Glucose Fasting 100 mg/dL (60-99); HDL Cholesterol 68 mg/dL (>40); LDL Cholesterol Calculated 98 mg/dL (<100); Potassium 4.6 mmol/L (3.3-5.1); Sodium 142 mmol/L (135-145); Total Protein 6.6 g/dL (6.5-8.0); Triglycerides 134 mg/dL (<150)
[2023-04-26 12:27] LABS: TSH reflex Free T4 3.68 uIU/mL (0.32-4.0)
== END 2023-04-26 07:22 | disposition home or self-care (01) ==
LOC: HO.HMGCLDS 07:21
PROVIDERS: PCP Internal Medicine; Visit Provider Internal Medicine
DX: E03.9 Hypothyroidism, unspecified (principal); E78.00 Pure hypercholesterolemia, unspecified; I10 Essential (primary) hypertension
CPT/HCPCS: 36415; 80053; 80061; 84443; 85025

== ENCOUNTER 2023-05-23 09:41 | Outpatient (AMB) | payer MEDICARE, SELFPAY ==
--- NOTE | 2023-05-23 09:45 | A.OFFVIS_ITS ---
Intake Intake Visit Reasons: OV - Right Knee OA Intake Note: Kimmy is a 71 year old female who presents today for a follow up of her right knee OA, Last Injection 05/04/22. If the injection was not helpful we would discuss gel injections, prp or surgery. She reports that both of her knees are painful. She reports that joaquim injection in the right knee lasted about 7 months. She has not tried cortisone in the left knee. Allergies Sulfa (Sulfonamide Antibiotics) Allergy (Verified 01/31/23 09:11) Rash HPI OV - Right Knee OA HPI Details Kimmy is a 72 year old woman who returns to discuss her bilateral knee OA. She was last seen, and her right knee was injected, on 05/04/22. She says this was helpful. She complains of pain with daily activity, R>L, and would like to discuss treatment options. She denies any prior injections to her left knee. [facility] Medical History Annual physical exam Arthritis COPD (chronic obstructive pulmonary disease) COVID-19 virus detected Depression HTN (hypertension) Hypercholesteremia Hypothyroidism Left shoulder tendinitis SOB (shortness of breath) Surgical History H/O colonoscopy History of bunionectomy History of cataract surgery History of tonsillectomy S/P foot surgery Family History Father Heart disease Diabetes mellitus Mother HTN (hypertension) ESRD (end stage renal disease) Maternal Grandmother Breast cancer Sister IDDM (insulin dependent diabetes mellitus) Son Substance use disorder Social History Housing: House Patient Tobacco Use Status: Never used Tobacco e-Cigarette/Vaping Use: Never Used Current occupational status: employed and retired Cognitive needs: No Hearing needs: No Vision needs: Yes Review of Systems Const All systems reviewed & are unremarkable except as noted in HPI and below Physical Exam Const General: no acute distress, alert and awake Orientation/consciousness: patient oriented x3 HEENT Head: Yes normocephalic and Yes atraumatic Eyes EOM: EOMs intact bilaterally Resp Effort & Inspection: normal respiratory effort and able to speak in complete sentences Cardio Jugular venous distension: no JVD Skin General skin exam: turgor normal Rashes: no rashes Neuro General: patient oriented x3 Extrem Other: Medial and retropatellar mild TTP bilaterally FUll ROM Psych Appearance: grossly normal Affect: normal affect Attitude: cooperative Office Procedures Joint Injection/Drain Joint Injection/Drain Details: Injected 1 mL of Decadron and 3 mL 1% lidocaine and 3 mL of 0.25% Marcaine. Site was prepped using aseptic technique. Patient tolerated the procedure well. Primary Site: right knee Secondary Site: left knee Approach Used: anterolateral Coding - Large joint 86534 - Glenohumeral/Tronchanteric Bursa/Intraarticular Procedure code (CPT) selection complete Assessment & Plan Assessment & Plan (1) Localized osteoarthritis of knees, bilateral: Code(s): M17.0 - Bilateral primary osteoarthritis of knee Plan: Has benefitted from injections in the past and this was repeated today. May follow up as needed. Plan Prepared for Curtis Hernandez MD by Rigo Tavarez, medical stenographer, on 05/23/23 at 9:58 AM, EST. Coding Level of Care Code Est Pt Level 3 (08220) Diagnoses Localized osteoarthritis of knees, bilateral M17.0 CPT Codes Coding - Large joint: 49969 - Large joint ([id number]) Coding - Joint 7: 05985 - Glenohumeral/Tronchanteric Bursa/Intraarticular ([id number])
== END 2023-05-23 10:10 | disposition home or self-care (01) ==
PROVIDERS: PCP Internal Medicine; Visit Provider Orthopaedic Surgery
DX: M17.0 Bilateral primary osteoarthritis of knee (principal)
CPT/HCPCS: 20610; 99213

== ENCOUNTER → 2023-05-23 09:41 | Outpatient (BNVA) | payer MEDICARE, SELFPAY | PROVIDERS: PCP Internal Medicine; Visit Provider Orthopaedic Surgery | DX: M17.0 Bilateral primary osteoarthritis of knee (principal) | CPT/HCPCS: 20610; 99212; J0665; J1100 ==

== ENCOUNTER 2023-06-12 15:08 | Outpatient (AMB) | payer MEDICARE, SELFPAY ==
[2023-06-12 15:25] VITALS: BP 160/90; PULSE 92; TEMP 36.4; O2SAT 96; BMI 27.0
--- NOTE | 2023-06-12 15:25 | MHC.OFFWIV ---
Intake Vital Signs 06/12/23 15:25 Height 5 ft 6 in Weight 167 lb BMI 27.0 BP 160/90 H Blood Pressure Location Lt brachial Position Sitting Pulse 92 Pulse Source Pulse Oximeter Temp 97.6 F Temp Source Temporal Artery Scan Pulse Oximetry (%) 96 Oxygen Delivery Method Room Air Intake Visit Reasons: EP sinus pain/infection/congestion Intake Note: pt is here today for sinus pain infection congestion started 2 weeks ago Patient Tobacco Use Status: Never used Tobacco Allergies Sulfa (Sulfonamide Antibiotics) Allergy (Verified 06/12/23 15:29) Rash Do you need a note to return to daycare/school/sports/work: No HPI HPI Comments History of Present Illness Details She presents for 2 weeks of sinus pressure Started with congestion/runny nose Aiden had been sick and she got sick from him She traveled recently from [facility] [place], congestion, blowing nose Using OTC medicine which dries sinues but pressure present; Benadryl and cold and flu stuff pressure was 7/10 No fevers chills, ,ST Minimal cough due to post nasal drip Sje saod some ear blockage and causes dizziness/off balanced No ear pain No syncope, HT or LOC PFSH Medical History Annual physical exam Arthritis COPD (chronic obstructive pulmonary disease) COVID-19 virus detected Depression HTN (hypertension) Hypercholesteremia Hypothyroidism Left shoulder tendinitis SOB (shortness of breath) Surgical History H/O colonoscopy History of bunionectomy History of cataract surgery History of tonsillectomy S/P foot surgery Family History Father Heart disease Diabetes mellitus Mother HTN (hypertension) ESRD (end stage renal disease) Maternal Grandmother Breast cancer Sister IDDM (insulin dependent diabetes mellitus) Son Substance use disorder Social History Housing: House Patient Tobacco Use Status: Never used Tobacco e-Cigarette/Vaping Use: Never Used Current occupational status: employed and retired Cognitive needs: No Hearing needs: No Vision needs: Yes Review of Systems Const Denies body aches, Denies chills, Denies fatigue and Denies fever(s) ENT Reports otalgia, Reports nasal congestion, Reports nasal discharge, Reports sinus pressure, Denies sore throat and Denies throat swelling Card Denies chest pain and Denies dyspnea Resp Reports cough and Denies dyspnea Endo Denies fatigue Aller/Immun Denies throat swelling Physical Exam Vital Signs: Last Vital Signs Temp 97.6 F 06/12/23 15:25 Pulse 92 06/12/23 15:25 BP 160/90 H 06/12/23 15:25 Pulse Ox 96 06/12/23 15:25 Oxygen Delivery Method Room Air 06/12/23 15:25 BMI result Body Mass Index 27.0 General: Non-toxic, NAD. Speaking full sentences. Skin: Warm dry throughout Eye: EOMI, P HENT: Airway patent. Uvula midline. No pharyngeal erythema or edema. No PROFESSOR OF BUSINESS. +maxillary sinus tenderness to palpation Bilateral canals clear. TM non-erythematous, non-bulging. No TM perforation or hemotympanum noted. Respiratory: CTA bilaterally. No wheezes, rales or rhonchi Cardiac: RRR. No murmur MSK: Full ROM extremities. Neurology: A/O. No aphasia or facial droop. Gait without abnormality Psych: Good mood and affect Assessment & Plan Assessment & Plan (1) Sinusitis: Code(s): J32.9 - Chronic sinusitis, unspecified Qualifiers: Sinusitis location: maxillary Chronicity: acute Recurrence: non-recurrent Qualified Code(s): J01.00 - Acute maxillary sinusitis, unspecified Plan: Patient seen and evaluated. Augmentin for sinuses Lungs CTA Patient gave verbal understanding and had no additional questions or concerns at time of discharge All questions answered Medications: New amoxicillin-pot clavulanate 875-125 mg 1 tab PO BID 14 tabs 0RF Coding Level of Care Code Est Pt Level 3 (37809) Diagnoses Acute non-recurrent maxillary sinusitis J01.00 Sinusitis location: maxillary Chronicity: acute Recurrence: non-recurrent
== END 2023-06-12 15:49 | disposition home or self-care (01) ==
PROVIDERS: PCP Internal Medicine; Visit Provider Physician Assistant
DX: J01.00 Acute maxillary sinusitis, unspecified (principal)
CPT/HCPCS: 99213

== ENCOUNTER 2023-08-01 08:28 | Outpatient (AMB) | payer MEDICARE, SELFPAY ==
--- NOTE | 2023-08-01 08:31 | MHC.PC.OV ---
Vital Signs 08/01/23 08:32 Height 5 ft 6 in Weight 172 lb BMI 27.8 BP 124/78 Blood Pressure Location Rt brachial Position Sitting Pulse 78 Pulse Source Pulse Oximeter Pulse Oximetry (%) 98 Oxygen Delivery Method Room Air Intake Visit Reasons: 6 month follow up Intake Note: Pt is here today for 6 months follow up visit. Pt states that she finished the antibiotic and she is still congested and has burning sensation in her nose. Allergies Sulfa (Sulfonamide Antibiotics) Allergy (Verified 08/01/23 08:33) Rash Medication List - Last Reconciled 08/01/23 by Asha Anders MD albuterol sulfate 90 mcg/actuation 2 puffs inhalation Q6H PRN aspirin 81 mg PO DAILY atorvastatin 40 mg PO DAILY azelastine 137 mcg (0.137 mL) intranasal BID baclofen 10 mg PO TID citalopram 40 mg PO DAILY levothyroxine 50 mcg PO DAILY lisinopril 5 mg PO DAILY lisinopril 10 mg PO DAILY omeprazole 20 mg PO DAILY Tobacco use date assessed: 08/01/23 Fall risk assessment: No Falls in past year Last assessed Fall Risk: 08/01/23 Dental Screening Dental Screen Date: 08/01/23 Did you have a dental visit in the last 12 months?: Yes Did you have a dental problem in the last 6 months where you did not have access to dental care?: No Was dental information given to patient?: Patient has dentist HPI 6 month follow up HPI Details Pt presents for f/u HTN, hyperlipid. Pt c/o nasal congestion and chronic postnasal drip since May. She has been taking Benadryl and [id number] nasal spray without relief. Patient denies facial pain fever chills or cough. Patient continues to complain of poor balance and nystagmus being worked up by a neuro restoration ecologist and neurologist in [place]. Patient was diagnosed with nonspecific abnormal cerebellar findings consistent with possible degenerative disease. Brain MRIs showed only small meningioma. Patient drinks 3 glasses of wine every night for the last few years but does not feel she has an alcohol dependency problem. [facility] Medical History Annual physical exam Hypothyroidism COPD (chronic obstructive pulmonary disease) SOB (shortness of breath) COVID-19 virus detected HTN (hypertension) Left shoulder tendinitis Depression Hypercholesteremia Arthritis Surgical History H/O colonoscopy S/P foot surgery History of cataract surgery History of bunionectomy History of tonsillectomy Family History Father Heart disease Diabetes mellitus Mother HTN (hypertension) ESRD (end stage renal disease) Maternal Grandmother Breast cancer Sister IDDM (insulin dependent diabetes mellitus) Son Substance use disorder Social History Housing: House Patient Tobacco Use Status: Never used Tobacco e-Cigarette/Vaping Use: Never Used service: No Current occupational status: employed and retired Cognitive needs: No Hearing needs: No Vision needs: Yes Questionnaire PHQ-9 Over the last 2 weeks, how often have you been bothered by any of the following problems? 1. Little interest or pleasure in doing things: not at all 2. Feeling down, depressed, or hopeless: not at all 3. Trouble falling or staying asleep, or sleeping too much: not at all 4. Feeling tired or having little energy: not at all 5. Poor appetite or overeating: not at all 6. Feeling bad about yourself - or that you are a failure or have let yourself or your family down: not at all 7. Trouble concentrating on things, such as reading the newspaper or watching television: not at all 8. Moving or speaking so slowly that other people could have noticed. Or the opposite - being so fidgety or restless that you have been moving around a lot more than usual: not at all 9. Thoughts that you would be better off or of hurting yourself in some way: not at all Total score: 0 Depression Screening Interpretation: Negative Depression Screening Done: Yes Source: Developed by Drs. Marcos Franco, Crista Chavez, Ben Laird and colleagues, with an educational christiano from [employer]. Thrive Questionnaire Date Thrive assessed: 08/01/23 I am a: Patient What is your living situation today?: I have a steady place to live Within the past 12 months, did the food you bought not last and you didn't have the money to get more?: Never true Within the past 12 months, did you worry whether your food would run out before you got money to buy more?: Never true Do you have trouble paying for medicines?: No Do you have trouble getting transportation to medical appointments?: No Do you have trouble paying your heating and electricity bill?: No Do you have trouble taking care of your child, family member or friend?: No Do you have trouble with day-to-day activities such as bathing, preparing meals, shopping, managing finances, etc.?: No Are you currently unemployed and looking for a job?: No Are you interested in more education?: No Please select the resources that you would like help with: None THRIVE Score: 0 AUDIT C Alcohol Use Questionnaire (AUDIT-C) 1. How often do you have a drink containing alcohol?: 2-3 times a week 2. How many drinks containing alcohol do you have on a typical day when you are drinking?: 1 or 2 3. How often do you have six or more drinks on one occasion?: Never Total Score: 3 AISHWARYA-7 AMB Questionnaire AISHWARYA-7 Date AISHWARYA - 7 assessed: 08/01/23 Feeling nervous, anxious, or on edge: 0 = Not at all Not being able to stop or control worryin = Not at all Worrying too much about different things: 0 = Not at all Trouble relaxin = Not at all Being so restless that it is hard to sit still: 0 = Not at all Becoming easily annoyed or irritable: 0 = Not at all Feeling afraid as if something awful might happen: 0 = Not at all Total AISHWARYA-7 score (0-4 normal; 5-9 mild; 10-14 moderate; 15-21 severe): 0 Source: Developed by Drs. Marcos Franco, Crista Chavez, Ben Laird and colleagues, with an educational christiano from [employer]. Review of Systems Const All systems reviewed & are unremarkable except as noted in HPI and below Reports no additional complaints Eyes Reports no additional complaints ENT Reports no additional complaints Card Reports no additional complaints Resp Reports no additional complaints Physical exam (Primary Care) Vital Signs: Last Vital Signs Pulse 78 08/01/23 08:32 BP 124/78 08/01/23 08:32 Pulse Ox 98 08/01/23 08:32 Oxygen Delivery Method Room Air 08/01/23 08:32 BMI result Body Mass Index 27.8 Tobacco/Smoking Status: Tobacco use Status Tobacco use date assessed 08/01/23 08/01/23 08:39 Patient Tobacco Use Status Never used Tobacco 08/01/23 08:39 e-Cigarette/Vaping Use Never Used 08/01/23 08:39 PHQ-9: PHQ-9 Score PHQ-9: Total score 0 08/01/23 08:41 Depression Screening Interpretation: Negative Thrive Assessment: Date of Thrive Assessment Date Thrive assessed 08/01/23 08/01/23 08:41 Const General: no acute distress HENMT Head: Yes normal to inspection Ears: hearing grossly normal bilaterally Face and sinus: Yes normal facial exam Throat: Yes posterior oropharynx normal Neck Neck: Yes supple Resp Effort & Inspection: normal respiratory effort Auscultation: clear to auscultation bilaterally Cardio Rhythm: regular rhythm Heart sounds: S1 normal heart sound present and S2 normal heart sound present GI Inspection: Yes normal to inspection Palpation (GI): Soft to palpation Percussion: Yes normal to percussion Auscultation: normal bowel sounds Neuro Cranial nerves: Yes CN's II-XII intact bilaterally Gait exam (Neuro): Staggering gait present Coordination: [id number] test normal Romberg Test: Negative Assessment and Plan Assessment & Plan (1) Hypothyroidism: Code(s): E03.9 - Hypothyroidism, unspecified Plan: Continue levothyroxine (2) COPD (chronic obstructive pulmonary disease): Comment: PFT mild emphysema 04/2020, CXR nl 04/2020, never smoked Code(s): J44.9 - Chronic obstructive pulmonary disease, unspecified Plan: Continue ProAir as needed continue current medication (3) HTN (hypertension): Comment: BP goal < 130/80 Code(s): I10 - Essential (primary) hypertension Plan: Continue current medications (4) Hypercholesteremia: Code(s): E78.00 - Pure hypercholesterolemia, unspecified Plan: Continue statin (5) Poor balance: Code(s): R26.89 - Other abnormalities of gait and mobility Plan: Patient was advised to stop drinking alcohol regularly and physical therapy to improve her balanced was recommended but patient declined. She will follow-up in 6 months with a fasting labs before Orders: Orders Vitamin B12 and Folate 6 Months E03.9 - Hypothyroidism, unspecified, E53.8 - Deficiency of other specified B group vitamins, E78.00 - Pure hypercholesterolemia, unspecified, I10 - Essential (primary) hypertension Comprehensive [place]. Panel Fast 6 Months E03.9 - Hypothyroidism, unspecified, E53.8 - Deficiency of other specified B group vitamins, E78.00 - Pure hypercholesterolemia, unspecified, I10 - Essential (primary) hypertension TSH reflex Free T4 6 Months E03.9 - Hypothyroidism, unspecified, E53.8 - Deficiency of other specified B group vitamins, E78.00 - Pure hypercholesterolemia, unspecified, I10 - Essential (primary) hypertension Complete Blood Count Auto Diff 6 Months E03.9 - Hypothyroidism, unspecified, E53.8 - Deficiency of other specified B group vitamins, E78.00 - Pure hypercholesterolemia, unspecified, I10 - Essential (primary) hypertension Lipid Panel 6 Months E03.9 - Hypothyroidism, unspecified, E53.8 - Deficiency of other specified B group vitamins, E78.00 - Pure hypercholesterolemia, unspecified, I10 - Essential (primary) hypertension Vitamin D 25-OH Total 6 Months E03.9 - Hypothyroidism, unspecified, E53.8 - Deficiency of other specified B group vitamins, E78.00 - Pure hypercholesterolemia, unspecified, I10 - Essential (primary) hypertension Medications: New azelastine administer into each nostril 137 mcg (0.137 mL) intranasal BID 30 mL 0RF Coding Level of Care Code Est Pt Level 4 (78698) Diagnoses Hypothyroidism E03.9 COPD (chronic obstructive pulmonary disease) J44.9 HTN (hypertension) I10 Hypercholesteremia E78.00 Poor balance R26.89
[2023-08-01 08:32] VITALS: BP 124/78; PULSE 78; O2SAT 98; BMI 27.8
== END 2023-08-01 09:30 | disposition home or self-care (01) ==
PROVIDERS: PCP Internal Medicine; Visit Provider Internal Medicine
DX: E03.9 Hypothyroidism, unspecified (principal); J44.9 Chronic obstructive pulmonary disease, unspecified; I10 Essential (primary) hypertension; E78.00 Pure hypercholesterolemia, unspecified; R26.89 Other abnormalities of gait and mobility
CPT/HCPCS: 99214

== ENCOUNTER 2023-11-18 08:42 | Outpatient (AMB) | payer MEDICARE, SELFPAY ==
--- NOTE | 2023-11-18 08:44 | MHC.OFFVIS ---
Vital Signs 11/18/23 08:45 Height 5 ft 6 in Weight 172 lb BMI 27.8 Intake Visit Reasons: New prob- LT shoulder inj Intake Note: Kimmy is a 73 year old right hand dominant female who presents today for a new problem visit with complaints of Left shoulder pain. She reports that she has had left shoulder pain ongoing for about 4-5 months now, she has had history of injections in the shoulder which were temporarily helpful. She would like to have the left shoulder injected today. She also complains of left knee pain, last injections were administered bilaterally. The injection has remained helpful in the right knee but the left knee has become symptomatic again. She would like to have an injection in the left knee and also discuss possible TKA. She is taking Ibuprofen for her symtpoms which is providing her with temporary reief . Allergies Sulfa (Sulfonamide Antibiotics) Allergy (Verified 11/18/23 08:51) Rash HPI HPI New prob- LT shoulder inj: Details: Kimmy is a 73 year old right hand dominant female who presents today for a new problem visit with complaints of Left shoulder pain. She reports that she has had left shoulder pain ongoing for about 4-5 months now, she has had history of injections in the shoulder which were temporarily helpful. She would like to have the left shoulder injected today. She also complains of left knee pain, last injections were administered bilaterally. The injection has remained helpful in the right knee but the left knee has become symptomatic again. She would like to have an injection in the left knee and also discuss possible TKA. She is taking Ibuprofen for her symptoms which is providing her with temporary relief . [facility] Medical History Annual physical exam Hypothyroidism COPD (chronic obstructive pulmonary disease) SOB (shortness of breath) COVID-19 virus detected HTN (hypertension) Left shoulder tendinitis Depression Hypercholesteremia Arthritis Surgical History H/O colonoscopy S/P foot surgery History of cataract surgery History of bunionectomy History of tonsillectomy Family History Father Heart disease Diabetes mellitus Mother HTN (hypertension) ESRD (end stage renal disease) Maternal Grandmother Breast cancer Sister IDDM (insulin dependent diabetes mellitus) Son Substance use disorder Social History Housing: House Patient Tobacco Use Status: Never used Tobacco e-Cigarette/Vaping Use: Never Used service: No Current occupational status: employed and retired Cognitive needs: No Hearing needs: No Vision needs: Yes Physical Exam Vital Signs: BMI result Body Mass Index 27.8 Const General: no acute distress, alert and awake Orientation/consciousness: patient oriented x3 HEENT Head: Yes normocephalic and Yes atraumatic Eyes EOM: EOMs intact bilaterally Resp Effort & Inspection: normal respiratory effort and able to speak in complete sentences Cardio Jugular venous distension: no JVD Skin General skin exam: turgor normal Rashes: no rashes Neuro General: patient oriented x3 Extrem Other: Left Medial and retropatellar mild TTP bilaterally 10-120 mild effusion Left shoulder with 4+/5 strength + Hawkin's/ Neer Psych Appearance: grossly normal Affect: normal affect Attitude: cooperative Office Procedures Joint Injection/Aspiration Joint Injection/Aspiration Details: Injected 1 mL of Decadron and 3 mL 1% lidocaine and 3 mL of 0.25% Marcaine. Site was prepped using aseptic technique. Patient tolerated the procedure well. Primary Site: left shoulder Secondary Site: left knee Coding - Large joint - Glenohumeral/Tronchanteric Bursa/Intraarticular Procedure code (CPT) selection complete Results Reviewed Results Reviewed: moderate to severe right knee OA, mild left knee. Assessment & Plan Assessment & Plan (1) Localized osteoarthritis of knees, bilateral: Code(s): M17.0 - Bilateral primary osteoarthritis of knee Category: Medical Plan: I injected left knee. She has questions about surgery but she is able to walk extended distances. Her primary problem is pain with initiation of gait. I injected her left knee. She can follow up in 3 months as needed. (2) Painful arc syndrome of left shoulder: Code(s): M75.102 - Unspecified rotator cuff tear or rupture of left shoulder, not specified as traumatic Category: Medical Plan: Since he continues to have chronic left shoulder pain. I injected her left shoulder. She has found this helpful in the past. Should it worsen we can consider more aggressive imaging but at this time it seems stable. Orders: Orders XR knee RT 3V Today M25.561 - Pain in right knee Coding Level of Care Code Est Pt Level 4 (10524) Diagnoses Localized osteoarthritis of knees, bilateral M17.0 Painful arc syndrome of left shoulder M75.102 CPT Codes Coding - 21163 Large joint: 35566 - Large joint ([id number]) Coding - Joint 7: 90039 - Glenohumeral/Tronchanteric Bursa/Intraarticular ([id number])
[2023-11-18 08:45] VITALS: BMI 27.8
== END 2023-11-18 10:00 | disposition home or self-care (01) ==
PROVIDERS: PCP Internal Medicine; Visit Provider Orthopaedic Surgery
DX: M17.0 Bilateral primary osteoarthritis of knee (principal); M75.102 Unspecified rotator cuff tear or rupture of left shoulder, not specified as traumatic
CPT/HCPCS: 20610; 99214

== ENCOUNTER 2023-11-18 08:42 | Outpatient (REF) | payer MEDICARE, SELFPAY ==
--- NOTE | ~2023-11-18 | XR_ITS ---
EXAMINATION: XR BILATERAL KNEES STANDING AND RIGHT KNEE CLINICAL INFORMATION: Reason for Exam M25.561 - Pain in right knee COMPARISON: Knee radiographs 06/01/2021 TECHNIQUE: 1 view of the bilateral knees standing. 2 views of the right knee. FINDINGS: RIGHT KNEE: No acute fracture or dislocation. Moderate to advanced osteoarthritis of the knee with near-complete loss of medial compartment joint space and tricompartmental osteophytes, similar to prior. Quadriceps tendon enthesopathy. No joint effusion. Atherosclerotic vascular calcification. LEFT KNEE: Limited single view of the left knee is remarkable for moderate osteoporosis of the knee with loss of medial and lateral compartment joint space and medial and lateral compartment osteophytes similar to prior. XR/XR knee RT 3V IMPRESSION: * No acute osseous abnormality. * Moderate to advanced osteoarthritis of the right knee and moderate osteoarthritis of the left kidney similar to prior.
== END 2023-11-18 08:43 | disposition home or self-care (01) ==
LOC: HO.HOSX 08:42
PROVIDERS: PCP Internal Medicine; Visit Provider Orthopaedic Surgery
DX: M17.0 Bilateral primary osteoarthritis of knee (principal); M75.102 Unspecified rotator cuff tear or rupture of left shoulder, not specified as traumatic
CPT/HCPCS: 20610; 73562; 99212; J0665; J1100

== ENCOUNTER 2024-01-17 07:03 | Outpatient (REF) | payer MEDICARE, SELFPAY ==
[2024-01-17 10:00] LABS: MANUAL DIFF FLAG NO
[2024-01-17 10:09] LABS: Basophils Absolute Auto 0.1 X10*3/uL (0.0-0.2); Basophils Percent Auto 1.3 % (0-2); Eosinophils Absolute Auto 0.3 X10*3/uL (0.0-0.4); Eosinophils Percent Auto 6.2 % (0-4); Hematocrit 43.8 % (37.0-47.0); Hemoglobin 15.1 g/dl (12.0-16.0); Imm Gran Abs Auto 0.02 X10*3/uL (0.00-0.03); Imm Gran Pct Auto 0.4 % (0.0-0.4); Lymphocytes Absolute Auto 2.3 X10*3/uL (1.2-4.9); Lymphocytes Percent Auto 42.2 % (20-40); Mean Corpuscular HGB Conc 34.5 g/dl (31.0-35.0); Mean Corpuscular Hemoglobin 34.2 pg (27.0-33.0); Mean Corpuscular Volume 99.3 fL (80.0-98.0); Mean Platelet Volume 9.3 fL (9.4-12.3); Monocytes Absolute Auto 0.4 X10*3/uL (0.1-1.2); Monocytes Percent Auto 7.5 % (2-11); Neutrophils Absolute Auto 2.3 x10*3/uL (2.0-8.3); Neutrophils Percent Auto 42.4 % (45-73); Platelet Count 203 X10*3/uL (160-400); Red Blood Count 4.41 X10*6/uL (4.20-5.50); Red Cell Distribution Width 12.8 % (11.0-16.0); White Blood Count 5.4 X10*3/uL (4.8-10.8)
[2024-01-17 10:43] LABS: Alanine Aminotransferase 28 U/L (0-31); Albumin Level 4.6 g/dL (3.5-5.0); Alkaline Phosphatase 85 U/L (39-117); Anion Gap 12 (12-20); Aspartate Amino Transferase 21 U/L (5-31); Bilirubin Total 0.8 mg/dL (0.0-1.0); Blood Urea Nitrogen 14 mg/dL (9-16); Calcium 9.6 mg/dL (8.4-10.2); Carbon Dioxide 26 mmol/L (22-29); Chloride 107 mmol/L (96-108); Cholesterol 211 mg/dL (<200); Estimated Glomerular Filt Rate > 60; Glucose Fasting 110 mg/dL (60-99); HDL Cholesterol 69 mg/dL (>40); LDL Cholesterol Calculated 104 mg/dL (<100); Potassium 3.9 mmol/L (3.3-5.1); Sodium 141 mmol/L (135-145); TSH reflex Free T4 5.04 uIU/mL (0.32-4.0); Total Protein 7.2 g/dL (6.5-8.0); Triglycerides 192 mg/dL (<150); Vitamin D 25-OH Total 71.3 ng/mL (>30)
[2024-01-17 11:00] LABS: Vitamin B12 372 pg/mL (200-900)
[2024-01-17 12:29] LABS: Free T4 (Free Thyroxine) 0.94 ng/dL (0.71-1.85)
== END 2024-01-17 07:04 | disposition home or self-care (01) ==
LOC: HO.HMGCLDS 07:03
PROVIDERS: PCP Internal Medicine; Visit Provider Internal Medicine
DX: E03.9 Hypothyroidism, unspecified (principal); E78.00 Pure hypercholesterolemia, unspecified; I10 Essential (primary) hypertension; E53.8 Deficiency of other specified B group vitamins
CPT/HCPCS: 36415; 80053; 80061; 82306; 82607; 82746; 84439; 84443; 85025

== ENCOUNTER 2024-01-23 07:50 | Outpatient (AMB) | payer MEDICARE, SELFPAY ==
--- NOTE | 2024-01-23 08:14 | MHC.PC.OV ---
Vital Signs 01/23/24 08:15 Height 5 ft 6 in Weight 170 lb BMI 27.4 BP 132/80 Blood Pressure Location Lt brachial Position Sitting Pulse 82 Pulse Source Pulse Oximeter Pulse Oximetry (%) 96 Oxygen Delivery Method Room Air Intake Visit Reasons: 6M F/U Intake Note: Pt is here today for 6 months follow up visit. Allergies Sulfa (Sulfonamide Antibiotics) Allergy (Verified 01/23/24 08:17) Rash Medication List - Last Reconciled 01/23/24 by Asha Anders MD [4-Aminopyridine PO] albuterol sulfate 90 mcg/actuation 2 puffs inhalation Q6H PRN aspirin 81 mg PO DAILY atorvastatin 40 mg PO DAILY azelastine 137 mcg (0.137 mL) intranasal BID baclofen 10 mg PO TID citalopram 40 mg PO DAILY levothyroxine 50 mcg PO DAILY lisinopril 5 mg PO DAILY lisinopril 10 mg PO DAILY omeprazole 20 mg PO DAILY Tobacco use date assessed: 01/23/24 Fall risk assessment: No Falls in past year Last assessed Fall Risk: 01/23/24 Dental Screening Dental Screen Date: 01/23/24 Did you have a dental visit in the last 12 months?: Yes Did you have a dental problem in the last 6 months where you did not have access to dental care?: No Was dental information given to patient?: Patient has dentist HPI 6M F/U HPI Details Patient presents for the follow-up on hypertension hyperlipidemia hypothyroidism chronic anxiety. 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 She has been prescribed 4-Aminopyridine but has not noticed any improvement in her symptoms. COUNTS INCLUDE 234 BEDS AT THE [facility] Medical History Annual physical exam Hypothyroidism COPD (chronic obstructive pulmonary disease) SOB (shortness of breath) COVID-19 virus detected HTN (hypertension) Left shoulder tendinitis Depression Hypercholesteremia Arthritis Surgical History H/O colonoscopy S/P foot surgery History of cataract surgery History of bunionectomy History of tonsillectomy Family History Father Heart disease Diabetes mellitus Mother HTN (hypertension) ESRD (end stage renal disease) Maternal Grandmother Breast cancer Sister IDDM (insulin dependent diabetes mellitus) Son Substance use disorder Social History Housing: House Patient Tobacco Use Status: Never used Tobacco e-Cigarette/Vaping Use: Never Used service: No Current occupational status: employed and retired Cognitive needs: No Hearing needs: No Vision needs: Yes Questionnaire Thrive Questionnaire Date Thrive assessed: 08/01/23 I am a: Patient What is your living situation today?: I have a steady place to live Within the past 12 months, did the food you bought not last and you didn't have the money to get more?: Never true Within the past 12 months, did you worry whether your food would run out before you got money to buy more?: Never true Do you have trouble paying for medicines?: No Do you have trouble getting transportation to medical appointments?: No Do you have trouble paying your heating and electricity bill?: No Do you have trouble taking care of your child, family member or friend?: No Do you have trouble with day-to-day activities such as bathing, preparing meals, shopping, managing finances, etc.?: No Are you interested in more education?: No Please select the resources that you would like help with: None Currently or been in a relationship where the following occur: No concerns reported THRIVE Score: 0 AUDIT C Alcohol Use Questionnaire (AUDIT-C) 1. How often do you have a drink containing alcohol?: 4 or more times a week 2. How many drinks containing alcohol do you have on a typical day when you are drinking?: 1 or 2 3. How often do you have six or more drinks on one occasion?: Never Total Score: 4 AISHWARYA-7 AMB Questionnaire AISHWARYA-7 Date AISHWARYA - 7 assessed: 08/01/23 Feeling nervous, anxious, or on edge: 1 = Several days Not being able to stop or control worryin = Several days Worrying too much about different things: 1 = Several days Trouble relaxin = Several days Being so restless that it is hard to sit still: 1 = Several days Becoming easily annoyed or irritable: 1 = Several days Feeling afraid as if something awful might happen: 0 = Not at all Total AISHWARYA-7 score (0-4 normal; 5-9 mild; 10-14 moderate; 15-21 severe): 6 Source: Developed by Drs. Marcos Franco, Crista Chavez, Ben Laird and colleagues, with an educational christiano from [employer]. Review of Systems Const All systems reviewed & are unremarkable except as noted in HPI and below Reports no additional complaints Eyes Reports no additional complaints ENT Reports no additional complaints Card Reports no additional complaints Resp Reports no additional complaints GI Reports no additional complaints Reports no additional complaints Physical exam (Primary Care) Vital Signs: Last Vital Signs Pulse 82 01/23/24 08:15 BP 132/80 01/23/24 08:15 Pulse Ox 96 01/23/24 08:15 Oxygen Delivery Method Room Air 01/23/24 08:15 BMI result Body Mass Index 27.4 Tobacco/Smoking Status: Tobacco use Status Tobacco use date assessed 01/23/24 01/23/24 08:19 Patient Tobacco Use Status Never used Tobacco 01/23/24 08:19 e-Cigarette/Vaping Use Never Used 01/23/24 08:19 Thrive Assessment: Date of Thrive Assessment Date Thrive assessed 08/01/23 01/23/24 08:19 Currently or been in a relationship where the following occur: No concerns reported Const General: no acute distress HENMT Head: Yes normal to inspection Mouth: Normal oral and palatal mucosa present Throat: Yes posterior oropharynx normal Eyes General: appearance normal, both eyes and all related structures Neck Neck: Yes no lymphadenopathy and Yes supple Resp Effort & Inspection: normal respiratory effort Auscultation: clear to auscultation bilaterally Cardio Rhythm: regular rhythm Heart sounds: S1 normal heart sound present and S2 normal heart sound present GI Inspection: Yes normal to inspection Palpation (GI): Soft to palpation Percussion: Yes normal to percussion Auscultation: normal bowel sounds Coding Level of Care Code Est Pt Prev Care >65y(21011) Diagnoses Painful arc syndrome of left shoulder M75.102 Annual physical exam Z00.00 Hypothyroidism E03.9 COPD (chronic obstructive pulmonary disease) J44.9 HTN (hypertension) I10 Excessive drinking of alcohol F10.10 Hyperglycemia R73.9 Assessment & Plan Assessment & Plan (1) Painful arc syndrome of left shoulder: Code(s): M75.102 - Unspecified rotator cuff tear or rupture of left shoulder, not specified as traumatic Category: Medical Plan: Follow-up with ortho, referred to physical therapy (2) Annual physical exam: Code(s): Z00.00 - Encounter for general adult medical examination without abnormal findings Category: Medical Plan: Well-balanced diet regular physical activity discussed with the patient (3) Hypothyroidism: Code(s): E03.9 - Hypothyroidism, unspecified Category: Medical Plan: Increase levothyroxine to 75 mcg a day check TSH in 2 months (4) COPD (chronic obstructive pulmonary disease): Comment: PFT mild emphysema 04/2020, CXR nl 04/2020, never smoked Code(s): J44.9 - Chronic obstructive pulmonary disease, unspecified Category: Medical Plan: Albuterol p.r.n. (5) HTN (hypertension): Comment: BP goal < 130/80 Code(s): I10 - Essential (primary) hypertension Category: Medical Plan: Continue current medications (6) Excessive drinking of alcohol: Code(s): F10.10 - Alcohol abuse, uncomplicated Category: Social Hx Plan: Cutting down on alcohol discussed with the patient (7) Hyperglycemia: Code(s): R73.9 - Hyperglycemia, unspecified Category: Medical Plan: ADA diet discussed with the patient check A1c Orders: Orders TSH reflex Free T4 2 Months E03.9 - Hypothyroidism, unspecified, E78.00 - Pure hypercholesterolemia, unspecified, I10 - Essential (primary) hypertension, R73.9 - Hyperglycemia, unspecified Lipid Panel 2 Months E03.9 - Hypothyroidism, unspecified, E78.00 - Pure hypercholesterolemia, unspecified, I10 - Essential (primary) hypertension, R73.9 - Hyperglycemia, unspecified Hemoglobin A1c 2 Months E03.9 - Hypothyroidism, unspecified, E78.00 - Pure hypercholesterolemia, unspecified, I10 - Essential (primary) hypertension, R73.9 - Hyperglycemia, unspecified PT Evaluation and Treatment Today M75.102 - Unspecified rotator cuff tear or rupture of left shoulder, not specified as traumatic Comprehensive [place]. Panel Fast 2 Months E03.9 - Hypothyroidism, unspecified, E78.00 - Pure hypercholesterolemia, unspecified, I10 - Essential (primary) hypertension, R73.9 - Hyperglycemia, unspecified Medications: New levothyroxine 75 mcg PO DAILY 90 tabs 0RF
[2024-01-23 08:15] VITALS: BP 132/80; PULSE 82; O2SAT 96; BMI 27.4
== END 2024-01-23 13:59 | disposition home or self-care (01) ==
PROVIDERS: PCP Internal Medicine; Visit Provider Internal Medicine
DX: M75.102 Unspecified rotator cuff tear or rupture of left shoulder, not specified as traumatic (principal); J44.9 Chronic obstructive pulmonary disease, unspecified; E03.9 Hypothyroidism, unspecified; I10 Essential (primary) hypertension; F10.10 Alcohol abuse, uncomplicated; R73.9 Hyperglycemia, unspecified

== ENCOUNTER → 2024-01-23 07:50 | Outpatient (BNVA) | payer MEDICARE, SELFPAY | PROVIDERS: PCP Internal Medicine; Visit Provider Internal Medicine | DX: M75.102 Unspecified rotator cuff tear or rupture of left shoulder, not specified as traumatic (principal); E03.9 Hypothyroidism, unspecified; J44.9 Chronic obstructive pulmonary disease, unspecified; I10 Essential (primary) hypertension; F10.10 Alcohol abuse, uncomplicated; R73.9 Hyperglycemia, unspecified; F41.1 Generalized anxiety disorder | CPT/HCPCS: 99212 ==

== ENCOUNTER 2024-01-30 13:00 | Outpatient (AMB) | payer MEDICARE, SELFPAY ==
--- NOTE | 2024-01-30 13:11 | MHC.OFFVIS ---
Intake Visit Reasons: OV - Left Shoulder Pain Intake Note: Kimmy is a 73 year old right hand dominant female who presents today for a follow up of her left shoulder pain. She was last seen on 11/18/23 where the left shoulder was injected however she continues to have pain. Patient reports that this injection only helped for about 1 month. Her pain is mostly felt at night. She Ibuprofen, heat application and ice application which only offer mild relief. Allergies Sulfa (Sulfonamide Antibiotics) Allergy (Verified 01/23/24 08:17) Rash HPI HPI OV - Left Shoulder Pain: Details: Kimmy comes in today with persistent left shoulder pain. She had a left shoulder injection about 2 and half months ago and it gave her a month of relief. She has not yet done she is having a hard time sleeping. I had injected her knee as well at last visit and she feels that that has continued to be helpful. [facility] Medical History Annual physical exam Hypothyroidism COPD (chronic obstructive pulmonary disease) SOB (shortness of breath) COVID-19 virus detected HTN (hypertension) Left shoulder tendinitis Depression Hypercholesteremia Arthritis Surgical History H/O colonoscopy S/P foot surgery History of cataract surgery History of bunionectomy History of tonsillectomy Family History Father Heart disease Diabetes mellitus Mother HTN (hypertension) ESRD (end stage renal disease) Maternal Grandmother Breast cancer Sister IDDM (insulin dependent diabetes mellitus) Son Substance use disorder Social History Housing: House Patient Tobacco Use Status: Never used Tobacco e-Cigarette/Vaping Use: Never Used service: No Current occupational status: employed and retired Cognitive needs: No Hearing needs: No Vision needs: Yes Physical Exam Const General: no acute distress, alert and awake Orientation/consciousness: patient oriented x3 HEENT Head: Yes normocephalic and Yes atraumatic Eyes EOM: EOMs intact bilaterally Resp Effort & Inspection: normal respiratory effort and able to speak in complete sentences Cardio Jugular venous distension: no JVD Skin General skin exam: turgor normal Rashes: no rashes Neuro General: patient oriented x3 Extrem Other: Left shoulder with 4+/5 strength + Hawkin's/ Neer Psych Appearance: grossly normal Affect: normal affect Attitude: cooperative Office Procedures Joint Injection/Aspiration Joint Injection/Aspiration Details: Injected 1 mL of Decadron and 3 mL 1% lidocaine and 3 mL of 0.25% Marcaine. Site was prepped using aseptic technique. Patient tolerated the procedure well. Primary Site: left shoulder Approach Used: posterolateral Coding 51210 - Large joint Procedure code (CPT) selection complete Assessment & Plan Assessment & Plan (1) Painful arc syndrome of left shoulder: Code(s): M75.102 - Unspecified rotator cuff tear or rupture of left shoulder, not specified as traumatic Category: Medical Plan: I injected her shoulder today and recommend physical therapy. She states an order was placed and I confirmed this but she has not yet heard from the physical therapy department. I encouraged her to call the. Coding Level of Care Code Est Pt Level 3 (59419) Diagnoses Painful arc syndrome of left shoulder M75.102 CPT Codes Coding - Large joint: 75626 - Large joint ([id number])
== END 2024-01-30 13:51 | disposition home or self-care (01) ==
PROVIDERS: PCP Internal Medicine; Visit Provider Orthopaedic Surgery
DX: M75.102 Unspecified rotator cuff tear or rupture of left shoulder, not specified as traumatic (principal)
CPT/HCPCS: 20610; 99213

== ENCOUNTER → 2024-01-30 13:00 | Outpatient (BNVA) | payer MEDICARE, SELFPAY | PROVIDERS: PCP Internal Medicine; Visit Provider Orthopaedic Surgery | DX: M75.102 Unspecified rotator cuff tear or rupture of left shoulder, not specified as traumatic (principal) | CPT/HCPCS: 20610; 99212; J0665; J1100; J2003 ==

== ENCOUNTER 2024-03-12 08:00 | Outpatient (RCR) | payer MEDICARE, SELFPAY ==
--- NOTE | 2024-02-13 15:01 | MHC.PT.EP ---
[facility] [place] Office [place] Office [place] Office [address] Cabrera Juarez [address] [phone] F: [phone] F: [phone] F: [phone] F: [phone] Physical Therapy Plan of Care Date of Evaluation: 02/13/24 Date of Surgery: n/a Diagnosis: painful arc syndrome of L shoulder Assessment: Patient is a 73 year old female presenting to PT with complaints of pain in her L shoulder. Pt reports onset of pain began years ago due to insidious onset. She presents today with impairments in pain, ROM, shoulder strength, posture. Pt's current occupation is retired, with baseline physical activities including reaching, lifting, ADLs, sleep. Pt expresses skilled nursing goal of reducing pain, and is motivated to work towards this in PT. Clinical presentation today is most consistent with signs and sx associated with L shoulder pain and pt will benefit from skilled PT 2 week x 4 weeks to address the following problems and impairments noted upon evaluation: pain, ROM, shoulder strength, posture. These problems limit the patient with the following functional activities: reaching, lifting, ADLs, sleeping. The prescribed treatment plan of care is medically necessary. Co-morbidities of COPD were identified and taken into considerations of plan of care. Pt was educated on HEP, role of PT, prognosis, POC. Frequency and Duration: The patient will be seen 2 x week x 4 weeks Short Term Goals: Pt will demonstrate improved shoulder ROM to equal B in 2 weeks. Pt will demonstrate improved shoulder MMT strength by 1/3 grade in 2 weeks. Pt will demonstrate improved posture as evidence by min to no cues during the session in 2 weeks. Shelter Goals: Pt will demonstrate improved SPADI score by 13 points in 4 weeks for improved functional mobility. Pt will demonstrate ability to sleep through the night with min to no pain in 4 weeks for improved QOL. Pt will demonstrate ability to reach and lift with min to no pain in 4 weeks for improved tolerance to ADLs. Treatment Plan: Modalities to reduce pain, spasms and effusion. Manual therapy to restore motion and function. Therapeutic exercise to improve strength and flexibility. Neuromuscular re-education for posture and balance. Therapeutic activities to return to functional activities of daily living. Electronically signed by: Faye Stanford, PT, DPT, ATC Please sign and return to therapist. Thank you for your referral.
--- NOTE | 2024-03-12 08:51 | MHC.PT.DC ---
[facility] [place] Office [place] Office [place] Office [address] Cabrera Ju[place] [address] [phone] F: [phone] F: [phone] F: [phone] F: [phone] Physical Therapy Discharge Report Diagnosis: painful arc syndrome of L shoulder Date of Surgery: n/a Date of Evaluation: 02/13/24 Date of Discharge: 03/12/24 Treatments to Date: 4 Cancellations to Date: 0 No Shows to Date: 0 Discharge Status: Patient Elected to Stop Recommend MD Follow-up Discharge Summary: 03/12/2024: Pt has unfortunately not been making progress since start of care. She has been doing her exercises 3 times a day which I advised reducing to 1 time a day to see if this alleviates some of her newer discomfort. Otherwise however her pain is limiting her quite a bit in terms of function so therefore I recommend following up with her MD for possibility of further imaging. She is in agreement with this plan and is also requesting to stop PT at this time. Electronically signed by: Faye Stanford, PT, DPT, ATC Please sign and return to therapist. Thank you for your referral.
== END 2024-03-12 08:51 | disposition home or self-care (01) ==
LOC: HO.PTCHIC 08:00
PROVIDERS: PCP Internal Medicine; Visit Provider Internal Medicine
DX: M75.102 Unspecified rotator cuff tear or rupture of left shoulder, not specified as traumatic (principal)
CPT/HCPCS: 97110; 97161

== ENCOUNTER 2024-03-30 12:26 | Outpatient (REF) | payer MEDICARE, SELFPAY ==
--- NOTE | ~2024-03-30 | MM_ITS ---
EXAMINATION: MM SCREENING DIGITAL BREAST TOMOSYNTHESIS, BILATERAL CLINICAL INFORMATION: Screening. Asymptomatic. COMPARISON: Mammography: Comparison is made with available priors TECHNIQUE: Digital breast mammography with tomosynthesis is performed in both the craniocaudal and mediolateral oblique views along with computer-aided detection (CAD). FINDINGS: There are scattered areas of fibroglandular density (ACR BI-RADS breast composition Category b). There are no significant masses, abnormal calcifications, or other abnormalities. MM/MM tomosynthesis screening BI IMPRESSION: No mammographic evidence of malignancy. ASSESSMENT: BI-RADS BI-RADS 1 - Negative RECOMMENDATION: Routine annual mammography screening. 1 year F/U This examination should not preclude the clinical evaluation of a suspicious palpable abnormality. This patient's information was entered into a reminder system with a target due date for their next mammogram. Electronically signed by: Sandie Demarco DO 04/03/2024 05:24 PM SHANNAN
--- OUTSIDE RECORDS SUMMARY | 2024-04-01 15:27 | XMS_ITS | Patient Health Record ---
Author Organization [facility] [place] Address [address] [place] [address] Care Team Providers Care Dumpling Machine Operator Name Role Phone Rogers HORTON, [facility] Primary Care Provider Unavail able Black, Ange Unavailable [phone] Allergies Allergen (clinical drug ingredient) Drug/Non Drug Allergy documented on EMR Reaction Allergy Type Onset Date Status sulfa Unknown Drug Allergy Active Reason For Referral No Information Medications Medication SIG (Take, Route, Frequency, Duration) Notes Start Date End Date Status Citalopram & Diet Manage Prod Active Effexor XR 75 MG 1 capsule with food Orally Once a day Not-Taking Vitamin D Not-Taking Lisinopril 10 MG 1 tablet Orally Once a day for 30 day(s) Active Omeprazole 20 MG 1 capsule Orally Onc e a day for 90 Active Multivitamins Active Simvastatin 20 MG Orally Ac tive Vicodin 5-300 MG 1 tablet as needed Orally every 6 hrs for as needed 01/12/2015 Not-Taking Fish Oil Active Vicodin 5-300 MG 1 tablet as needed Orally every 6 hrs for as needed 07/23/2016 Not-Taking Citracal + D Active Keflex 500 MG 1 capsule Orally libby ry 12 hrs for 10 day(s) 03/10/2018 Not-Taking Meloxicam 7.5 MG 1 tablet Orally Once a day for 30 day(s) 01/09/2018 Active Meloxicam 15 MG 1 tablet Orally Once a day for 30 Active ProAir HFA PRN Active Social History Tobacco Use: Social History Observation Description Date Details (start date - stop date) Never Smoker NA - NA Tobacco Use/Smoking Question Answer Notes Are you a: nonsmoker Additional Findings: Tobacco Non-User Current no n-smoker Alcohol Screen Question Answer Notes Did you have a drink containing alcohol in the p ast year? Yes Points 0 Interpretation Negative Tobacco use other than smoking: Question Answer Notes Are you an other tobacco user? No Problems Problem Type SNOMED Code ICD Code Onset Dates Problem Status W/U Status Risk Notes Problem Localized, primary osteoarthritis of the ankle and/or foot (897454833) Primary osteoarthriti s, right ankle and foot (M19.071) Active confirmed Problem Localized, primary osteoarthritis of the ankle and/or foot (904912907) Primary osteoarthriti s, left ankle and foot (M19.072) Active confirmed Problem Non-pressure ulcer lower limb (160984793) 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 skin (L97.521) Active confirmed Problem Acquired hammer toe of right foot (4184380262401349) Other hammer toe(s) (acquired), right foot (M20.41) Active confirmed Problem Acquired hammer toe of left foot (7203257912968213) Other hammer toe(s) (acquired), left foot (M20.42) Active confirmed Plan Of Treatment Pending Test Test Name Order Date X ray : Foot, left 2V 03/26/2016 BUN, Creatinine 04/27/2019 *Liver Function Test (LFT) 04/27/2019 63397- Debride <25 sq cm 08/14/2013 43138- Debride <25 sq cm 07/22/2014 24779- Debride <25 sq cm 03/26/2016 [id number], Toes 07/23/2016 18900- Biopsy of skin lesion 07/31/2013 55324 - Tenotomy, open flexor 03/10/2018 Insurance Providers Payer Name Payer Address Payer Phone Subscriber Number Group Number Insured Name Patient Relationship to Insured Coverage Start Date Coverage End Date Blue Benefits [address] [address] [place] [address] [id number] Kimmy Rios Self - patient is the insured Medical (General) History Medical History History ICD Code mumps measles chicken pox back, hip, knee pain chronic bronchitis Surgical History Surgery Date(Month/Year) tonsillectomy HT/Condyle right 01/20/2015 HT L5, Condyl L5 08/10/2016
== END 2024-03-30 12:27 | disposition home or self-care (01) ==
LOC: HO.MAMMO 12:26
PROVIDERS: Visit Provider Internal Medicine
DX: Z12.31 Encounter for screening mammogram for malignant neoplasm of breast (principal)
CPT/HCPCS: 77063; 77067

== ENCOUNTER → 2024-03-30 12:45 | Outpatient (BNV) | payer MEDICARE, SELFPAY | PROVIDERS: Visit Provider Internal Medicine | DX: Z12.31 Encounter for screening mammogram for malignant neoplasm of breast (principal) | CPT/HCPCS: 77063; 77067 ==

== ENCOUNTER 2024-04-09 07:23 | Outpatient (REF) | payer MEDICARE, SELFPAY ==
--- OUTSIDE RECORDS SUMMARY | 2024-04-09 07:26 | XMS_ITS | Patient Health Record ---
Author Organization [facility] [place] Address [address] [place] [address] Care Team Providers Care Quality Auditor Name Role Phone Rogers HORTON, [facility] Primary Care Provider Unavail able Black, Ange Unavailable [phone] Allergies Allergen (clinical drug ingredient) Drug/Non Drug [...] primary osteoarthritis of the ankle and/or foot (135812986) Primary osteoarthriti s, right ankle and foot (M19.071) Active confirmed Problem Localized, primary osteoarthritis of the ankle and/or foot (409537218) Primary osteoarthriti s, left ankle and foot (M19.072) Active confirmed Problem Non-pressure ulcer lower limb (316636066) 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 skin (L97.521) Active confirmed Problem Acquired hammer toe of right foot (4185032154582582) Other hammer toe(s) (acquired), right foot (M20.41) Active confirmed Problem Acquired hammer toe of left foot (3022295817552246) Other hammer toe(s) (acquired), left foot (M20.42) Active confirmed Plan Of Treatment Pending Test Test Name Order Date X ray : Foot, left 2V 03/26/2016 BUN, Creatinine 04/27/2019 *Liver Function Test (LFT) 04/27/2019 21235- Debride <25 sq cm 08/14/2013 96333- Debride <25 sq cm 07/22/2014 04167- Debride <25 sq cm 03/26/2016 [id number], Toes 07/23/2016 10297- Biopsy of skin lesion 07/31/2013 19562 - Tenotomy, open flexor 03/10/2018 Insurance Providers Payer Name Payer Address Payer Phone Subscriber Number Group Number Insured Name Patient Relationship to Insured Coverage Start Date Coverage End Date Blue Benefits [address] [address] [place] [address] [id number] Kimmy Rios Self - patient is the insured Medical (General) History Medical History History ICD Code mumps measles chicken pox back, hip, knee pain chronic bronchitis Surgical History Surgery Date(Month/Year) tonsillectomy HT/Condyle right 01/20/2015 HT L5, Condyl L5 08/10/2016
[2024-04-09 10:17] LABS: Estimated Average Glucose 97 mg/dL; Hemoglobin A1C 111.0731 umol/L; Total Hemoglobin (HGBA1C) 3545.5563 umol/L
[2024-04-09 10:29] LABS: Alanine Aminotransferase 42 U/L (0-31); Albumin Level 4.2 g/dL (3.5-5.0); Alkaline Phosphatase 70 U/L (39-117); Anion Gap 10 (12-20); Aspartate Amino Transferase 22 U/L (5-31); Bilirubin Total 0.5 mg/dL (0.0-1.0); Blood Urea Nitrogen 17 mg/dL (9-16); Calcium 8.8 mg/dL (8.4-10.2); Carbon Dioxide 28 mmol/L (22-29); Chloride 109 mmol/L (96-108); Cholesterol 213 mg/dL (<200); Estimated Glomerular Filt Rate > 60; Glucose Fasting 108 mg/dL (60-99); HDL Cholesterol 61 mg/dL (>40); LDL Cholesterol Calculated 114 mg/dL (<100); Potassium 3.9 mmol/L (3.3-5.1); Sodium 143 mmol/L (135-145); Total Protein 6.7 g/dL (6.5-8.0); Triglycerides 190 mg/dL (<150)
[2024-04-09 10:46] LABS: TSH reflex Free T4 1.99 uIU/mL (0.32-4.0)
== END 2024-04-09 07:24 | disposition home or self-care (01) ==
LOC: HO.HMGCLDS 07:23
PROVIDERS: PCP Internal Medicine; Visit Provider Internal Medicine
DX: E78.00 Pure hypercholesterolemia, unspecified (principal); I10 Essential (primary) hypertension; E03.9 Hypothyroidism, unspecified; R73.9 Hyperglycemia, unspecified
CPT/HCPCS: 36415; 80053; 80061; 83036; 84443

== ENCOUNTER 2024-10-26 14:46 | Outpatient (AMB) | payer MEDICARE, SELFPAY ==
--- NOTE | 2024-10-26 14:59 | A.OFFVIS_ITS ---
Vital Signs 10/26/24 15:09 Height 5 ft 6 in Weight 170 lb BMI 27.4 Intake Visit Reasons: Newprob-Both knee pain Limited Weight bearing Intake Note: Kimmy is a 73 year old female who presents today as an established patient for a new problem visit to evaluate bilateral knee pain. Patient reports ongoing pain for a long time with her left knee being the worse. History of injections in her knees that provides temporary relief. States her pain wraps around her knees. At times she feels her knee swells and has difficulty with bending her knee. She also complains of difficulty with stair use. She would like to discuss her options. She has attended physical therapy in the past and she continues to do at home exercises. Finds little relief with Tylenol and Motrin. Allergies Sulfa (Sulfonamide Antibiotics) Allergy (Verified 10/26/24 15:03) Rash HPI HPI Newprob-Both knee pain Limited Weight bearing: Details: 73-year-old female returns to the office today for left shoulder pain which has been present for several months. She has had an injection in the past which is only helpful for approximately 1 month. She continues to have limitations with daily activities such as reaching overhead and repetitive motion. Of note she has also been seen in the past for bilateral knee pain and has failed conservative management and would like to discuss the next step. [facility] Medical History Annual physical exam Hypothyroidism COPD (chronic obstructive pulmonary disease) SOB (shortness of breath) COVID-19 virus detected HTN (hypertension) Left shoulder tendinitis Depression Hypercholesteremia Arthritis Surgical History H/O colonoscopy S/P foot surgery History of cataract surgery History of bunionectomy History of tonsillectomy Family History Father Heart disease Diabetes mellitus Mother HTN (hypertension) ESRD (end stage renal disease) Maternal Grandmother Breast cancer Sister IDDM (insulin dependent diabetes mellitus) Son Substance use disorder Social History Housing: House Patient Tobacco Use Status: Never used Tobacco e-Cigarette/Vaping Use: Never Used service: No Current occupational status: employed and retired Cognitive needs: No Hearing needs: No Vision needs: Yes Review of Systems Const All systems reviewed & are unremarkable except as noted in HPI and below Physical Exam Vital Signs: BMI result Body Mass Index 27.4 Const General: no acute distress, alert and awake Orientation/consciousness: patient oriented x3 HEENT Head: Yes normocephalic and Yes atraumatic Eyes EOM: EOMs intact bilaterally Resp Effort & Inspection: normal respiratory effort and able to speak in complete sentences Cardio Jugular venous distension: no JVD Skin General skin exam: turgor normal Rashes: no rashes Neuro General: patient oriented x3 Extrem Other: Left shoulder with 4+/5 strength + Hawkin's/ Neer Psych Appearance: grossly normal Affect: normal affect Attitude: cooperative Results Reviewed Results Reviewed: X-rays of the left shoulder obtained in the office today and reviewed by me show AC joint arthritis Assessment & Plan Assessment & Plan (1) Osteoarthritis of left acromioclavicular joint: Code(s): M19.012 - Primary osteoarthritis, left shoulder Category: Medical Plan: Given the ongoing discomfort in the left shoulder and failed conservative management an MRI of the left shoulder has been ordered to further evaluate the integrity of the rotator cuff and surrounding structures. I also encouraged her to make an appointment with Dr. Hernandez to discuss further options which may include total knee arthroplasty for her knees given she has failed conservative measures with injections and over the last several months her quality of life has significantly declined. Orders: Orders XR Knee Amish 3V Today M25.561 - Pain in right knee, M25.562 - Pain in left knee XR shoulder LT min 2V Today M25.512 - Pain in left shoulder MR shoulder LT wo con Today S46.009A - Unspecified injury of muscle(s) and t endon(s) of the rotator cuff of unspecified shoulder, initial encounter Coding Level of Care Code Est Pt Level 3 (93512) Complex EM visit Add On G2211 Diagnoses Osteoarthritis of left acromioclavicular joint M19.012
[2024-10-26 15:09] VITALS: BMI 27.4
--- OUTSIDE RECORDS SUMMARY | 2024-10-26 15:17 | XMS_ITS | Patient Health Record ---
Author Organization [facility] [place] Address [address] [facility] [address] [place] [address] Care Team Providers Care Vertical Contour Band Saw Operator Name Role Phone Rogers HORTON, [facility] Primary Care Provider Unavail able Black, Ange Unavailable [phone] Allergies Allergen (clinical drug ingredient) Drug/Non Drug [...] 10 MG 1 tablet Orally Once a day; Duration: 30 day(s) Active Omeprazole 20 MG 1 capsule Orally Onc e a day; Duration: 90 Active Multivitamins Active Simvastatin 20 MG Orally Ac tive Vicodin 5-300 MG 1 tablet as needed Orally every 6 hrs; Duration: as needed 01/12/2015 Not-Taking Fish Oil Active Vicodin 5-300 MG 1 tablet as needed Orally every 6 hrs; Duration: as needed 07/23/2016 Not-Taking Citracal + D Active Keflex 500 MG 1 capsule Orally libby ry 12 hrs; Duration: 10 day(s) 03/10/2018 Not-Taking Meloxicam 7.5 MG 1 tablet Orally Once a day; Duration: 30 day(s) 01/09/2018 Active Meloxicam 15 MG 1 tablet Orally Once a day; Duration: 30 Active ProAir HFA PRN Active Social [...] primary osteoarthritis of the ankle and/or foot (741842357) Primary osteoarthriti s, right ankle and foot (M19.071) Active confirmed Problem Localized, primary osteoarthritis of the ankle and/or foot (433129459) Primary osteoarthriti s, left ankle and foot (M19.072) Active confirmed Problem 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 skin (L97.521) Active confirmed Problem Acquired hammer toe of right foot (0297056266605632) Other hammer toe(s) (acquired), right foot (M20.41) Active confirmed Problem Acquired hammer toe of left foot (3736645992326185) Other hammer toe(s) (acquired), left foot (M20.42) Active confirmed Plan Of Treatment Pending Test Test Name Order Date X ray : Foot, left 2V 03/26/2016 BUN, Creatinine 04/27/2019 *Liver Function Test (LFT) 04/27/2019 57640- Debride <25 sq cm 08/14/2013 90181- Debride <25 sq cm 07/22/2014 84932- Debride <25 sq cm 03/26/2016 44401-Xpllconyo, Toes 07/23/2016 19339- Biopsy of skin lesion 07/31/2013 83403 - Tenotomy, open flexor 03/10/2018 Insurance Providers Payer Name Payer Address Payer Phone Subscriber Number Group Number Insured Name Patient Relationship to Insured Coverage Start Date Coverage End Date Blue Benefits [address] [address] [place] [address] [id number] Kimmy Rios Self - patient is the insured Medical (General) History Medical History History ICD Code mumps measles chicken pox back, hip, knee pain chronic bronchitis Surgical History Surgery Date(Month/Year) tonsillectomy HT/Condyle right 01/20/2015 HT L5, Condyl L5 08/10/2016
--- OUTSIDE RECORDS SUMMARY | 2024-10-26 15:17 | XMS_ITS | Encounter Summary ---
Author Organization [facility] Address [address] [place] [address] Care Team Providers Care Chef Teacher Name Role Phone Asha Anders MD Primary Care Provider [phone] Encounter Details Date Type Department Care Team ([facility] st Contact Info) Description 08/13/2022 Orders Only [facility] Neurology [address] [facility] [address] [place] [address] Drew Briscoe MD [address] [place] [address] Social History Tobacco Use Types Packs/Day Years Used Date Smoking Tobacco: Never Smokeless Tobacco: Never Comments Unknown Sex and Gender Information Value Date Recorded Sex Assigned at Not on file Legal Sex Female 1:44 PM EST Gender Identity Not on file Sexual Orientation Not on file documented as of this encounter Miscellaneous Notes * Result Encounter Note - Debi Mcallister RN - 08/13/2022 10:00 AM EDT Please review. documented in this encounter Plan of Treatment Not on file documented as of this encounter Procedures * Due to [place] state law, this organization might not be sharing negative HIV tests. Procedure Name Priority Date/Time Associated Diagnosis Comments IMMUNOFIXATION, SERUM Routine 08/13/2022 10:11 AM EDT Nystagmus MAGNESIUM, SERUM Routine 08/13/2022 10:1 1 AM EDT Nystagmus BASIC METABOLIC PANEL WITH (GFR) Routine 08/13/2022 10:11 AM EDT Nystagmus documented in this encounter Results * Due to [place] state law, this organization might not be sharing negative HIV tests. * IMMUNOFIXATION, SERUM (08/13/2022 10:11 AM EDT) Pathologist [facility] Interpretation SEE NOTE [facility] Comment:Normal pattern. No m onoclonal proteins detected. 08/13/2022 10:1 1 AM EDT 08/13/2022 3:45 PM EDT Narrative Resulting Agency Comment [id number] Drew Briscoe MD LABORATORY Final Result Performing Organization Address [facility] Co de Phone Number [facility] [address] [place] [address] * MAGNESIUM, SERUM (08/13/2022 10:11 AM EDT) Pathologist [facility] Magnesium 2.3 1.5 - 2.5 mg/dL [facility] 08/13/2022 10:1 1 AM EDT 08/13/2022 3:45 PM EDT Narrative Resulting Agency Comment [id number] Drew Briscoe MD LABORATORY Final Result Performing Organization Address [facility] de Phone Number [facility] [address] [place] [address] * (ABNORMAL) BASIC METABOLIC PANEL WITH (GFR) (08/13/2022 10:11 AM EDT) Pathologist [facility] Glucose 103(H) 65 - 99 mg/dL [facility] Comment: Fasting reference interval For someone without known diabetes, a glucose value between 100 and 125 mg/dL is consistent with prediabetes and should be confirmed with a follow-up test. Urea Nitrogen Blood (BUN) 17 7 - 25 mg/dL [facility] Creatinine 0.71 0.60 - 1.00 mg/dL [facility] EGFR 91 > OR = 60 mL/min/1. 73m2 [facility] Comment: The eGFR is based on the CKD-EPI 2020 equation. To calculate the new eGFR from a previous Creatinine or Cystatin C result, go to https://www.kidney.org/professionals/ kdoqi/gfr%5Fcalculator BUN/Creatinine Ratio NOT APPLICABLE 6 - 22 (calc) [facility] Sodium 139 135 - 146 mmol/L [facility] Potassium 4.2 3.5 - 5.3 mmol/L [facility] Chloride 104 98 - 110 mmol/L [facility] Carbon dioxide 28 20 - 32 mmol/L [facility] Calcium 9.7 8.6 - 10.4 mg/dL [facility] 08/13/2022 10:1 1 AM EDT 08/13/2022 3:45 PM EDT Narrative [facility] - 08/13/2022 6:08 PM EDT Please note that this estimated GFR does not include an adjustment for the patient's height or weight, and can therefore, be viewed as reliable only for patients with heights between 60 and 72 . More precise quantification using a 24-hour urine sample or height-based algorithm is recommended for patients outside of this range of height and for those individuals with more precise needs for GFR calculation. Resulting Agency Comment [id number] Drew Briscoe MD LABORATORY Final Result Performing Organization Address City/State/[facility] Co de Phone Number [facility] [address] [place] [address] documented in this encounter Visit Diagnoses Diagnosis Nystagmus Nystagmus, unspecified documented in this encounter Care Teams Chef Teacher Relationship Specialty Start Date End Date Asha Anders MD [address] [place] [address] PCP - General Internal Medicine 08/13/22 documented as of this encounter
--- OUTSIDE RECORDS SUMMARY | 2024-10-26 15:17 | XMS_ITS | Patient Health Record ---
Author Organization [facility] Address [address] [place] [address] Care Team Providers Care Order Puller Name Role Phone Rogers [facility] Primary Care Provider Unavail able Shar Redding Jr Unavailable [phone] 2 Allergies Allergen (clinical drug ingredient) Drug/Non Drug Allergy documented on EMR Reaction Allergy Type Onset Date Status Sulfa Unknown Drug Allergy Active Reason For Referral No Information Medications Medication SIG (Take, Route, Frequency, Duration) Notes Start Date End Date Status Vitamin D3 1000 UNIT 1 capsule Orally On ce a day Active Fish Oil 1000 MG 1 capsule Orally Onc e a day Active Multivitamin Orally Active Effexor XR 75 MG 1 capsule with food Orally Once a day Active Suprep Bowel Prep 1 as directed Orally 1 for 1 dose 12/17/2013 Active Simvastatin 20 MG 1 tablet in the even ing Orally Once a day Active CeleBREX 200 MG 1 capsule Orally Onc e a day Active Calcium 600 MG 1 tablet with meals Orally Twice a day Active Citalopram Hydrobromide 40 MG 0.5 tablet Orally Once a day Active Problems Problem Type SNOMED Code ICD Code Onset Dates Problem Status W/U Status Risk Notes Problem [id number] Screening for colon cancer (V76.51) Active confirmed Plan Of Treatment Future Test Test Name Order Date COLONOSCOPY 12/17/2013 Insurance Providers Payer Name Payer Address Payer Phone Subscriber Number Group Number Insured Name Patient Relationship to Insured Coverage Start Date Coverage End Date [facility] [address] [place] [phone] [id number] ASHLEY DAMICO Self - patient is the insured Medical (General) History Medical History History ICD Code kidney stones elevated cholesterol depression Surgical History Surgery Date(Month/Year) ganglion cyst tonsillectomy bunionectomy
== END 2024-10-26 15:47 | disposition home or self-care (01) ==
LOC: HO.HOS 14:46
PROVIDERS: PCP Internal Medicine; Visit Provider Physician Assistant
DX: M19.012 Primary osteoarthritis, left shoulder (principal)
CPT/HCPCS: 99213; G2211

== ENCOUNTER → 2024-10-26 14:48 | Outpatient (BNV) | payer MEDICARE, SELFPAY | PROVIDERS: Visit Provider Radiology Diagnostic Radiology | DX: M25.512 Pain in left shoulder (principal) | CPT/HCPCS: 73030; 73562 ==

== ENCOUNTER 2024-10-26 15:35 | Outpatient (REF) | payer MEDICARE, SELFPAY ==
--- NOTE | ~2024-10-26 | XR_ITS ---
Exam: Three-view bilateral knees. TECHNIQUE: Standing AP, lateral, sunrise view lower extremity joint, x-rays bilateral INDICATION: Knee pain Prior: Right knee November 18, 2023 and bilateral knees June 01, 2021 FINDINGS: Right knee: There is severe narrowing of the medial compartment and mild narrowing of the lateral compartment. There are tricompartmental marginal osteophytes. There is no joint effusion. There is stippled calcific density in the joint line, very faint. Left knee: There is mild narrowing of the medial compartment and mild narrowing of the lateral compartment. There is stippled amorphous calcific density in the medial greater than lateral joint line. Chondrocalcinosis is more apparent on the current study. Tricompartmental marginal osteophytes are largest along the lateral compartment and trochlea. 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 Chondrocalcinosis is increasing since the prior. Electronically signed by: Jacques Escalera MD 10/26/2024 03:06 PM EDT
--- NOTE | ~2024-10-26 | XR_ITS ---
CLINICAL HISTORY: M25.512 - Pain in left shoulder Radiographs of the leftshoulder, 2 views Comparison: None available Findings: No fracture or dislocation. Narrowed acromiohumeral interval. Mild degenerative change. Bone mineralization is decreased. No soft tissue swelling. Impression: No acute findings. Narrowed acromiohumeral interval may indicate rotator cuff pathology. Mild degenerative change. This document has been electronically signed by: Poly Cuello MD on 10/28/2024 14:53:34
== END 2024-10-26 15:36 | disposition home or self-care (01) ==
LOC: HO.HOSX 15:35
PROVIDERS: Visit Provider Physician Assistant
DX: M19.012 Primary osteoarthritis, left shoulder (principal); M25.512 Pain in left shoulder; M17.4 Other bilateral secondary osteoarthritis of knee
CPT/HCPCS: 73030; 73562; 99212

== ENCOUNTER 2024-11-09 07:18 | Outpatient (REF) | payer MEDICARE, SELFPAY ==
--- NOTE | ~2024-11-09 | MR_ITS ---
TECHNIQUE: MRI of the shoulder without contrast was performed on a high-field scanner. EXAMINATION: MRI Shoulder without contrast, left TECHNIQUE: Multiplanar multisequence MR imaging through an upper extremity joint without contrast. INDICATION: Rotator cuff tear PRIOR: X-ray October 26, 2024 FINDINGS: Rotator Cuff: Supraspinatus tendon is torn at the footprint and retracted 1.5 cm. Terminal extends into the undersurface of anterior infraspinatus tendon. Additionally, there is an intrasubstance delamination of infraspinatus tendon medial to the footprint 4 cm in length, likely extending to the undersurface in the posterior joint near the plane of the glenoid articular surface Other rotator cuff tendons are intact Labrum: There is a tear through posterior labrum between 2-4:00. Long biceps tendon: The long biceps tendon is intact and not displaced from the groove. Acromioclavicular joint: There are mild degenerative changes with osteophytes. There is thickening of the superior acromioclavicular ligament and likely a tear near the acromion. There is mild reactive marrow signal. Axillary pouch: The axillary pouch is intact. A small volume of mildly complex joint fluid is present in the posterior joint. Articular cartilage: There is a full-thickness 4 mm articular cartilage defect involving inferomedial humeral head and adjacent marginal osteophyte. There is a partial-thickness articular cartilage defect involving the anterior superior humeral head likely involving more than half of the articular cartilage thickness. Bones/Marrow: Focal reactive marrow signal is present in the proximal humeral diaphysis, anteriorly, just inferior to the lesser tuberosity. There is a second 4 mm focus of fluid signal in the posterior proximal diaphysis of humerus. Soft tissues: There is mild fatty streaking consistent with deconditioning. MR/MR shoulder LT wo con IMPRESSION: There is a full-thickness tear of supraspinatus tendon the footprint with 1.5 cm retraction. Tear likely extends to the undersurface of anterior infraspinatus tendon. Additionally, there is intrasubstance delamination of infraspinatus tendon 4 cm in length posterior to the humeral head likely extends to the undersurface. Moderate degenerative changes of the humeral head with a 4 mm full-thickness articular cartilage defect involving inferomedial humeral head and grade III chondromalacia involving anterior humeral head with marginal osteophytes. Posterior labral tear between 2-4:00. Mild AC joint arthropathy. Small glenohumeral joint effusion with probable synovial thickening. Electronically signed by: Jacques Escalera MD 11/09/2024 11:43 AM EDT
--- OUTSIDE RECORDS SUMMARY | 2024-11-09 07:25 | XMS_ITS | Encounter Summary ---
Author Organization [facility] Address [address] [place] [address] Care Team Providers Care Rn Maternal Child Name Role Phone Asha Anders MD Primary Care Provider [phone] Encounter Details Date Type Department Care Team ([facility] st Contact Info) Description 08/13/2022 Orders Only [facility] Neurology [address] [facility] [address] [place] [address] Drew Briscoe MD [address] [place] [address] Social History Tobacco Use Types Packs/Day Years [...] of this encounter Procedures * Due to [place] state law, this organization might not be sharing negative HIV tests. Procedure Name Priority Date/Time Associated Diagnosis Comments IMMUNOFIXATION, SERUM Routine 08/13/2022 10:11 AM EDT Nystagmus MAGNESIUM, SERUM Routine 08/13/2022 10:1 1 AM EDT Nystagmus BASIC METABOLIC PANEL WITH (GFR) Routine 08/13/2022 10:11 AM EDT Nystagmus documented in this encounter Results * Due to [place] state law, this organization might not be sharing negative HIV tests. * IMMUNOFIXATION, SERUM (08/13/2022 10:11 AM EDT) Pathologist [facility] Interpretation SEE NOTE [facility] Comment:Normal pattern. No m onoclonal proteins detected. 08/13/2022 10:1 1 AM EDT 08/13/2022 3:45 PM EDT Narrative Resulting Agency Comment [id number] Drew Briscoe MD LABORATORY Final Result Performing Organization Address [facility] Co de Phone Number [facility] [address] [place] [address] * MAGNESIUM, SERUM (08/13/2022 10:11 AM EDT) Pathologist [facility] Magnesium 2.3 1.5 - 2.5 mg/dL [facility] 08/13/2022 10:1 1 AM EDT 08/13/2022 3:45 PM EDT Narrative Resulting Agency Comment [id number] Drew Briscoe MD LABORATORY Final Result Performing Organization Address [facility] de Phone Number [facility] [address] [place] [address] * (ABNORMAL) BASIC METABOLIC PANEL WITH (GFR) (08/13/2022 10:11 AM EDT) Pathologist [facility] Glucose 103(H) 65 - 99 mg/dL [facility] [...] needs for GFR calculation. Resulting Agency Comment [id number] Drew Briscoe MD LABORATORY Final Result Performing Organization Address City/State/[facility] Co de Phone Number [facility] [address] [place] [address] documented in this encounter Visit Diagnoses Diagnosis Nystagmus Nystagmus, unspecified documented in this encounter Care Teams Rn Maternal Child Relationship Specialty Start Date End Date Asha Anders MD [address] [place] [address] PCP - General Internal Medicine 08/13/22 documented as of this encounter
--- OUTSIDE RECORDS SUMMARY | 2024-11-09 07:25 | XMS_ITS | Clinical Summary ---
Author Organization [facility] Address [address] [facility] [address] [place] [address] Phone Care Team Providers Care Reefer Engineer Name Role Phone Asha Anders MD Primary Care Provider [phone] Medications clonazePAM (KLONOPIN) 1 MG tabletIndicatio ns:Nystagmus Take 1 tablet (1 mg total) by mouth 3 (three) times a day as needed for anxiety (downbeat nystagmus). 90 tablet 04/21/2024 Active Social History Tobacco Use Types Packs/Day Years [...] Orientation Straight 05/15/2023 10 :14 AM EST Plan of Treatment Health Maintenance Due Date Last Done Comments LIPID PANEL 1951 DEPRESSION SCREENING 1963 SMOKING Hx and SMOKELESS TOB ACCO SCREENING 11/12/1964 HEPATITIS C SCREENING 11/12/1969 MAMMOGRAM 1991 COLOGUARD 11/12/1996 COLONOSCOPY 11/12/1996 COLORECTAL CANCER SCREENING 11/12/1996 FIT TEST 11/12/1996 FOBT 11/12/1996 SIGMOIDOSCOPY 11/12/1996 VIRTUAL COLONOSCOPY 11/12/1996 PNEUMOCOCCAL VACCINES (50+ y ears) (1 of 1 - PCV) 11/12/2001 ZOSTER VACCINES (1 of 2) 11/12/2001 OSTEOPOROSIS SCREENING INITI AL (ONE-TIME) 11/12/2016 COVID-19 VACCINE (1 - 2023-2 5 season) 2023 RSV VACCINE (1 - 1-dose 75+ series) 11/12/2026 Adult Td,Tdap Booster 10/31/2030 10/31/2020 HEPATITIS A VACCINES Aged Out No long er eligible based on patient's age to complete this topic HIB VACCINES Aged Out No longer eligi ble based on patient's age to complete this topic MENINGOCOCCAL VACCINES (ACWY) Aged Out No longer eligible based on patient's age to complete this topic MENINGOCOCCAL VACCINES (B) Aged Out N o longer eligible based on patient's age to complete this topic Medical Devices Not on file Insurance [place] [id number] [facility] MEDEX SUPPLEMENT MEDICARE PART A & B [employer] MEDEX SUPPLEMENT MEDICARE PART A & B [employer] MEDEX SUPPLEMENT MEDICARE PART A & B [employer] MEDEX SUPPLEMENT MEDICARE PART A & B [employer] MEDEX SUPPLEMENT MEDICARE PART A & B [employer] MEDEX SUPPLEMENT Care Teams Reefer Engineer Relationship Specialty [place] [address] [place] [address] [place] [address] PCP - General Internal Medicine 05/03/23 Additional Source Comments The information contained in this document represents components of the legal health record. It is not the complete legal health record.[facility]
--- OUTSIDE RECORDS SUMMARY | 2024-11-09 07:25 | XMS_ITS | Patient Health Record ---
Author Organization [facility] [place] Address [address] [facility] [place] [address] Care Team Providers Care Fisheries Technician Name Role Phone Rogers HORTON, [facility] Primary Care Provider Unavail able Black, Ange Unavailable [phone] Allergies Allergen (clinical drug ingredient) Drug/Non Drug [...] primary osteoarthritis of the ankle and/or foot (082765976) Primary osteoarthriti s, right ankle and foot (M19.071) Active confirmed Problem Localized, primary osteoarthritis of the ankle and/or foot (077323941) Primary osteoarthriti s, left ankle and foot (M19.072) Active confirmed Problem 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 skin (L97.521) Active confirmed Problem Acquired hammer toe of right foot (8710583735742353) Other hammer toe(s) (acquired), right foot (M20.41) Active confirmed Problem Acquired hammer toe of left foot (0806355967514746) Other hammer toe(s) (acquired), left foot (M20.42) Active confirmed Plan Of Treatment Pending Test Test Name Order Date X ray : Foot, left 2V 03/26/2016 BUN, Creatinine 04/27/2019 *Liver Function Test (LFT) 04/27/2019 31598- Debride <25 sq cm 08/14/2013 64061- Debride <25 sq cm 07/22/2014 95701- Debride <25 sq cm 03/26/2016 19280-Tsvddfhrd, Toes 07/23/2016 97709- Biopsy of skin lesion 07/31/2013 72291 - Tenotomy, open flexor 03/10/2018 Insurance Providers Payer Name Payer Address Payer Phone Subscriber Number Group Number Insured Name Patient Relationship to Insured Coverage Start Date Coverage End Date Blue Benefits [address] [address] [place] [address] [id number] Kimmy Rios Self - patient is the insured Medical (General) History Medical History History ICD Code mumps measles chicken pox back, hip, knee pain chronic bronchitis Surgical History Surgery Date(Month/Year) tonsillectomy HT/Condyle right 01/20/2015 HT L5, Condyl L5 08/10/2016
--- OUTSIDE RECORDS SUMMARY | 2024-11-09 07:25 | XMS_ITS | Patient Health Record ---
Author Organization [facility] Address [address] [place] [address] Care Team Providers Care Oracle Ebs Developer Name Role Phone Rogers [facility] Primary Care Provider Unavail able Shar Redding Jr Unavailable Allergies Allergen (clinical drug ingredient) Drug/Non Drug [...] Problem Status W/U Status Risk Notes Problem [id number] Screening for colon cancer (V76.51) Active confirmed Plan Of Treatment Future Test Test Name Order Date COLONOSCOPY 12/17/2013 Insurance Providers Payer Name Payer Address Payer Phone Subscriber Number Group Number Insured Name Patient Relationship to Insured Coverage Start Date Coverage End Date [facility] [address] [place] [phone] [id number] ASHLEY DAMICO Self - patient is the insured Medical (General) History Medical History History ICD Code kidney stones elevated cholesterol depression Surgical History Surgery Date(Month/Year) ganglion cyst tonsillectomy bunionectomy
== END 2024-11-09 07:19 | disposition home or self-care (01) ==
LOC: HO.MRI 07:18
PROVIDERS: PCP Internal Medicine; Visit Provider Physician Assistant
DX: S46.002D Unspecified injury of muscle(s) and tendon(s) of the rotator cuff of left shoulder, subsequent encounter (principal)
CPT/HCPCS: 73221

== ENCOUNTER → 2024-11-09 07:18 | Outpatient (BNV) | payer MEDICARE, SELFPAY | PROVIDERS: PCP Internal Medicine; Visit Provider Radiology Diagnostic Radiology | DX: M75.122 Complete rotator cuff tear or rupture of left shoulder, not specified as traumatic (principal) | CPT/HCPCS: 73221 ==

== ENCOUNTER 2024-11-18 11:33 | Outpatient (AMB) | payer MEDICARE, SELFPAY ==
--- NOTE | 2024-11-18 11:33 | A.OFFVIS_ITS ---
Vital Signs 11/18/24 11:36 Height 5 ft 6 in Weight 170 lb BMI 27.4 Intake Visit Reasons: TH-LT shoulder MRI review Intake Note: Kimmy is a 74 year old female who is scheduled for a telehealth visit to review a left shoulder MRI. Allergies Sulfa (Sulfonamide Antibiotics) Allergy (Verified 11/18/24 11:35) Rash Medication List - Last Reconciled 11/18/24 by Juan J Covarrubias PA-C [4-Aminopyridine PO] albuterol sulfate 90 mcg/actuation 2 puffs inhalation Q6H PRN aspirin 81 mg PO DAILY atorvastatin 40 mg PO DAILY azelastine 137 mcg (0.137 mL) intranasal BID citalopram 40 mg PO DAILY levothyroxine 50 mcg PO DAILY lisinopril 10 mg PO DAILY lisinopril 5 mg PO DAILY omeprazole 20 mg PO DAILY HPI HPI TH-LT shoulder MRI review: Details: 74 yo female presents today for telehealth visit MRI f/u left shoulder. She state the shoulder has caused pain daily especially at night. She has had injections with minimal relief, 2-4 weeks. She continues to have limitations with daily activities especially sleeping at night. She states the only position that feels better when she is sleeping is when she puts her arm above her head in a straight position. [facility] Medical History Annual physical exam Hypothyroidism COPD (chronic obstructive pulmonary disease) SOB (shortness of breath) COVID-19 virus detected HTN (hypertension) Left shoulder tendinitis Depression Hypercholesteremia Arthritis Surgical History H/O colonoscopy S/P foot surgery History of cataract surgery History of bunionectomy History of tonsillectomy Family History Father Heart disease Diabetes mellitus Mother HTN (hypertension) ESRD (end stage renal disease) Maternal Grandmother Breast cancer Sister IDDM (insulin dependent diabetes mellitus) Son Substance use disorder Social History Housing: House Patient Tobacco Use Status: Never used Tobacco e-Cigarette/Vaping Use: Never Used service: No Current occupational status: employed and retired Cognitive needs: No Hearing needs: No Vision needs: Yes Review of Systems Const All systems reviewed & are unremarkable except as noted in HPI and below Physical Exam Vital Signs: BMI result Body Mass Index 27.4 Resp Effort & Inspection: normal respiratory effort and able to speak in complete sentences Telehealth Telehealth [facility] Location of provider rendering services: practice address Patient Identification confirmed using: Name, : Yes Telehealth method: video Patient verbally consented to treatment: Yes Patient verbally consented to billing insurance company: Yes Patient informed of any privacy concerns related to visit: Yes Minutes spent on Phone/Video with Pt.: 10 Results Reviewed Results Reviewed: MR shoulder LT wo con IMPRESSION: There is a full-thickness tear of supraspinatus tendon the footprint with 1.5 cm retraction. Tear likely extends to the undersurface of anterior infraspinatus tendon. Additionally, there is intrasubstance delamination of infraspinatus tendon 4 cm in length posterior to the humeral head likely extends to the undersurface. Moderate degenerative changes of the humeral head with a 4 mm full-thickness articular cartilage defect involving inferomedial humeral head and grade III chondromalacia involving anterior humeral head with marginal osteophytes. Posterior labral tear between 2-4:00. Mild AC joint arthropathy. Small glenohumeral joint effusion with probable synovial thickening. Electronically signed by: Jacques Escalera MD 11/09/2024 11:43 AM EDT RP Assessment & Plan Assessment & Plan (1) Left rotator cuff tear: Code(s): M75.102 - Unspecified rotator cuff tear or rupture of left shoulder, not specified as traumatic Category: Medical Plan: I discussed with the patient the results of her MRI which does include a full- thickness rotator cuff tear. I did not see any evidence of atrophy within the tendon. Given her age I am not sure if she would be a candidate for rotator cuff repair. She does have an appointment to meet with Dr. Hernandez on November 20 to discuss total knee arthroplasty for her knees. I encouraged her to mentioned the shoulders at that time to see which 1 should take precedence in her treatment as both are limiting her activities. She does express understanding and will follow up with Dr. Hernandez as previously discussed. Coding Level of Care Code Tele Est Pt Level 3 (77316) Complex EM visit Add On G2211 Diagnoses Left rotator cuff tear M75.102
[2024-11-18 11:36] VITALS: BMI 27.4
--- OUTSIDE RECORDS SUMMARY | 2024-11-18 12:34 | XMS_ITS | Patient Health Record ---
Author Organization [facility] Address [address] [place] [address] Care Team Providers Care Cuff Setter Name Role Phone Rogers [facility]ORTON[facility] Primary Care Provider Unavail able Shar [...] Problem Status W/U Status Risk Notes Problem [id number] Screening for colon cancer (V76.51) Active confirmed Plan Of Treatment Future Test Test Name Order Date COLONOSCOPY 12/17/2013 Insurance Providers Payer Name Payer Address Payer Phone Subscriber Number Group Number Insured Name Patient Relationship to Insured Coverage Start Date Coverage End Date [facility] [address] [place] [address] [phone] [id number] ASHLEY DAMICO Self - patient is the insured Medical (General) History Medical History History ICD Code kidney stones elevated cholesterol depression Surgical History Surgery Date(Month/Year) ganglion cyst tonsillectomy bunionectomy
--- OUTSIDE RECORDS SUMMARY | 2024-11-18 12:34 | XMS_ITS | Clinical Summary ---
Author Organization [facility] Address [address] [place] [address] Phone Care Team Providers Care Ups Driver Name Role Phone Asha Anders MD Primary Care Provider [phone] Medications clonazePAM (KLONOPIN) 1 MG tabletIndicatio ns:Nystagmus [...] [place] [id number] [facility] MEDEX SUPPLEMENT MEDICARE PART A & B [employer] MEDEX SUPPLEMENT MEDICARE PART A & B [employer] MEDEX SUPPLEMENT MEDICARE PART A & B [employer] MEDEX SUPPLEMENT MEDICARE PART A & B [employer] MEDEX SUPPLEMENT MEDICARE PART A & B [employer] MEDEX SUPPLEMENT Care Teams Ups Driver Relationship Specialty [place] [address] [place] [address] [place] [address] PCP - General Internal Medicine 05/03/23 Additional Source Comments The information contained in this document represents components of the legal health record. It is not the complete legal health record.[facility]
--- OUTSIDE RECORDS SUMMARY | 2024-11-18 12:34 | XMS_ITS | Encounter Summary ---
Author Organization [facility] Address [address] [place] [address] Care Team Providers Care Journalism Internship Name Role Phone Asha Anders MD Primary Care Provider [phone] Encounter Details Date Type Department Care Team ([facility] st Contact Info) Description 08/13/2022 Orders Only [facility] Neurology [address] [facility] [address] [place] [address] Drew Briscoe MD [address] [place] [address] Social History Tobacco Use Types Packs/Day Years [...] of this encounter Procedures * Due to [place] state law, this organization might not be sharing negative HIV tests. Procedure Name Priority Date/Time Associated Diagnosis Comments IMMUNOFIXATION, SERUM Routine 08/13/2022 10:11 AM EDT Nystagmus MAGNESIUM, SERUM Routine 08/13/2022 10:1 1 AM EDT Nystagmus BASIC METABOLIC PANEL WITH (GFR) Routine 08/13/2022 10:11 AM EDT Nystagmus documented in this encounter Results * Due to [place] state law, this organization might not be sharing negative HIV tests. * IMMUNOFIXATION, SERUM (08/13/2022 10:11 AM EDT) Pathologist [facility] Interpretation SEE NOTE [facility] Comment:Normal pattern. No m onoclonal proteins detected. 08/13/2022 10:1 1 AM EDT 08/13/2022 3:45 PM EDT Narrative Resulting Agency Comment [id number] Drew Briscoe MD LABORATORY Final Result Performing Organization Address [facility] Co de Phone Number [facility] [address] [place] [address] * MAGNESIUM, SERUM (08/13/2022 10:11 AM EDT) Pathologist [facility] Magnesium 2.3 1.5 - 2.5 mg/dL [facility] 08/13/2022 10:1 1 AM EDT 08/13/2022 3:45 PM EDT Narrative Resulting Agency Comment [id number] Drew Briscoe MD LABORATORY Final Result Performing Organization Address [facility] de Phone Number [facility] [address] [place] [address] * (ABNORMAL) BASIC METABOLIC PANEL WITH (GFR) (08/13/2022 10:11 AM EDT) Pathologist [facility] Glucose 103(H) 65 - 99 mg/dL [facility] [...] needs for GFR calculation. Resulting Agency Comment [id number] Drew Briscoe MD LABORATORY Final Result Performing Organization Address City/State/[facility] Co de Phone Number [facility] [address] [place] [address] documented in this encounter Visit Diagnoses Diagnosis Nystagmus Nystagmus, unspecified documented in this encounter Care Teams Journalism Internship Relationship Specialty Start Date End Date Asha Anders MD [address] [place] [address] PCP - General Internal Medicine 08/13/22 documented as of this encounter
--- OUTSIDE RECORDS SUMMARY | 2024-11-18 12:35 | XMS_ITS | Patient Health Record ---
[facility] [place] Address [address] [place] [address] Care Team Providers Care Fraud Manager Name Role Phone Rogers HORTON, [facility] Primary Care Provider Unavail able Black, Ange Unavailable [phone] Allergies Allergen (clinical drug ingredient) Drug/Non Drug [...] primary osteoarthritis of the ankle and/or foot (348832009) Primary osteoarthriti s, right ankle and foot (M19.071) Active confirmed Problem Localized, primary osteoarthritis of the ankle and/or foot (943307960) Primary osteoarthriti s, left ankle and foot (M19.072) Active confirmed Problem 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 skin (L97.521) Active confirmed Problem Acquired hammer toe of right foot (1139354650259432) Other hammer toe(s) (acquired), right foot (M20.41) Active confirmed Problem Acquired hammer toe of left foot (9288934641760194) Other hammer toe(s) (acquired), left foot (M20.42) Active confirmed Plan Of Treatment Pending Test Test Name Order Date X ray : Foot, left 2V 03/26/2016 BUN, Creatinine 04/27/2019 *Liver Function Test (LFT) 04/27/2019 62908- Debride <25 sq cm 08/14/2013 54244- Debride <25 sq cm 07/22/2014 81731- Debride <25 sq cm 03/26/2016 15745-Yvgwfreyc, Toes 07/23/2016 36321- Biopsy of skin lesion 07/31/2013 47475 - Tenotomy, open flexor 03/10/2018 Insurance Providers Payer Name Payer Address Payer Phone Subscriber Number Group Number Insured Name Patient Relationship to Insured Coverage Start Date Coverage End Date [employer] [address] [address] [place] [address] [id number] Kimmy Rios Self - patient is the insured Medical (General) History Medical History History ICD Code mumps measles chicken pox back, hip, knee pain chronic bronchitis Surgical History Surgery Date(Month/Year) tonsillectomy HT/Condyle right 01/20/2015 HT L5, Condyl L5 08/10/2016
== END 2024-11-18 11:45 | disposition home or self-care (01) ==
LOC: HO.HOS 11:33
PROVIDERS: PCP Internal Medicine; Visit Provider Physician Assistant
DX: M75.102 Unspecified rotator cuff tear or rupture of left shoulder, not specified as traumatic (principal)
CPT/HCPCS: 99213; G2211

== ENCOUNTER 2024-11-30 08:37 | Outpatient (AMB) | payer MEDICARE, SELFPAY ==
--- NOTE | 2024-11-30 08:41 | MHC.OFFVIS ---
Vital Signs 11/30/24 08:42 Height 5 ft 6 in Weight 170 lb BMI 27.4 Intake Visit Reasons: OV - Bilateral Knee OA - Discuss TKA Intake Note: Kimmy is a 74 year old female who presents today for a follow up of her Bilateral Knee Pain. Patient was last seen with Juan J where she reported that the injections have no longer provided relief, she has swelling of the knees and difficulty with ROM. She would like to discuss surgical interventions. Patient is also mentioning about her right shoulder, she had a MRI and she was told she has a tear. Allergies Sulfa (Sulfonamide Antibiotics) Allergy (Verified 11/30/24 08:42) Rash HPI HPI OV - Bilateral Knee OA - Discuss TKA: Details: Kimmy complains of right > left knee pain. Pain with stairs. Cannot walk long distances. Has tried steroid injections. Can't go camping. Her knees give out. She has had maybe 3-4 injection which do not last. Does have some COPD but never smoked. She occasionally uses an inhaler. This is treated by her PCP. She would like to be able to navigate stairs and engage in daily activities without pain. Her had bilateral knee replacements and did well. Her right knee is more painful in her left but in the past her left knee has been more painful than her right. Over the past 18 months she has been receiving injections and/or physical therapy for her left shoulder. She feels this has been going on for a long time and she has been kept up at night. She states physical therapy made her worse and at best injections only lasted a month. She had an MRI ordered by NALLELY Covarrubias in his showed a full-thickness rotator cuff tear on the left with moderate glenohumeral OA. She states the shoulder keeps her up at night. She has good range of motion however. [facility] Medical History Annual physical exam Hypothyroidism COPD (chronic obstructive pulmonary disease) SOB (shortness of breath) COVID-19 virus detected HTN (hypertension) Left shoulder tendinitis Depression Hypercholesteremia Arthritis Surgical History H/O colonoscopy S/P foot surgery History of cataract surgery History of bunionectomy History of tonsillectomy Family History Father Heart disease Diabetes mellitus Mother HTN (hypertension) ESRD (end stage renal disease) Maternal Grandmother Breast cancer Sister IDDM (insulin dependent diabetes mellitus) Son Substance use disorder Social History Housing: House Patient Tobacco Use Status: Never used Tobacco e-Cigarette/Vaping Use: Never Used service: No Current occupational status: employed and retired Cognitive needs: No Hearing needs: No Vision needs: Yes Physical Exam Vital Signs: BMI result Body Mass Index 27.4 Extrem Other: On exam she has tenderness to palpation medial compartment right greater than left. 5-125 degrees of motion. Dorsalis pedis pulse 2 +. Mild gait antalgia on the right. On the left shoulder she is actually has a negative empty can. She does have 4/5 weakness in external rotation at 0 degrees. She has 35/90/130/L5 positive Fuller and Neer Results Reviewed Results Reviewed: I personally reviewed the MR images. There is a full-thickness tear of supraspinatus tendon the footprint with 1.5 cm retraction. Tear likely extends to the undersurface of anterior infraspinatus tendon. Additionally, there is intrasubstance delamination of infraspinatus tendon 4 cm in length posterior to the humeral head likely extends to the undersurface. Moderate degenerative changes of the humeral head with a 4 mm full-thickness articular cartilage defect involving inferomedial humeral head and grade III chondromalacia involving anterior humeral head with marginal osteophytes. Posterior labral tear between 2-4:00. Mild AC joint arthropathy. Small glenohumeral joint effusion with probable synovial thickening. I personally reviewed relevant radiographs. Knee with severe degenerative changes right knee with severe degenerative changes medial compartment and moderate left knee tricompartmental OA Assessment & Plan Assessment & Plan (1) Osteoarthritis of right knee: Code(s): M17.11 - Unilateral primary osteoarthritis, right knee Category: Medical Plan: This is a pleasant 74-year-old woman with severe osteoarthritis of the right knee. We have been seeing her for this for over 3 years and she feels that she is not improving. Injections have only been minimally helpful and she would like to not think about her knee pain during the day so that she can engage in daily activities without pain. I think she is a good candidate for a right knee replacement. I discussed the procedure with her. I discussed the risks, benefits and alternatives of surgery with her. She does not want additional steroid injections and I do not think there is a role for bracing. She feels that it is affecting her quality of life and I explained the procedure to her. I explained the risks that can be associated with surgery including, but not limited to, the risk of infection, damage to arteries and nerves, stiffness, need for additional surgery, aseptic loosening, fracture as well as the medical complications that can be associated with arthroplasty including, but not limited to, the risk of stroke, blood clot, PE, organ failure. She expressed understanding. She would like to proceed forward and I will have our nurse navigator begin the preoperative clearance process. She is overall quite healthy with mild COPD of unknown etiology is she denies ever being a smoker. (2) Left rotator cuff tear: Code(s): M75.102 - Unspecified rotator cuff tear or rupture of left shoulder, not specified as traumatic Category: Medical Plan: Kimmy has a full-thickness tear of her left rotator cuff. I suspect this has been present for some time. She feels like it should have been diagnosed earlier and I 1st step documentation of seeing her about 18 months ago for this and treating her with injection. This was not helpful and she finally went on to therapy and then to get an MRI which did show full-thickness tear. Surgically speaking I think attempts at rotator cuff repair would be the most logical next step. I described this surgery to her. She is not sure she wants to do it and will think about it and would rather go forward with knee surgery for now. I explained that the chronicity of this injury is uncertain and that it could have been present for 10 years or 2 years it is hard to know. Interestingly she has good strength,except in external rotation at 0 degrees, and a negative empty can. We will continue to discuss this at her next visit. Coding Level of Care Code Est Pt Level 4 (34588) Complex EM visit Add On G2211 Diagnoses Osteoarthritis of right knee M17.11 Left rotator cuff tear M75.102
[2024-11-30 08:42] VITALS: BMI 27.4
--- OUTSIDE RECORDS SUMMARY | 2024-11-30 08:58 | XMS_ITS | Encounter Summary ---
Author Organization [facility] Address [address] [place] [address] Care Team Providers Care Visitor Services Assistant Name Role Phone Asha Anders MD Primary Care Provider [phone] Encounter Details Date Type Department Care Team ([facility] st Contact Info) Description 08/13/2022 Orders Only [facility] Neurology [address] [facility] [address] [place] [address] Drew Briscoe MD [address] [place] [address] Social History Tobacco Use Types Packs/Day Years [...] of this encounter Procedures * Due to [place] state law, this organization might not be sharing negative HIV tests. Procedure Name Priority Date/Time Associated Diagnosis Comments IMMUNOFIXATION, SERUM Routine 08/13/2022 10:11 AM EDT Nystagmus MAGNESIUM, SERUM Routine 08/13/2022 10:1 1 AM EDT Nystagmus BASIC METABOLIC PANEL WITH (GFR) Routine 08/13/2022 10:11 AM EDT Nystagmus documented in this encounter Results * Due to [place] state law, this organization might not be sharing negative HIV tests. * IMMUNOFIXATION, SERUM (08/13/2022 10:11 AM EDT) Pathologist [facility] Interpretation SEE NOTE [facility] Comment:Normal pattern. No m onoclonal proteins detected. 08/13/2022 10:1 1 AM EDT 08/13/2022 3:45 PM EDT Narrative Resulting Agency Comment [id number] Drew Briscoe MD LABORATORY Final Result Performing Organization Address [facility] Co de Phone Number [facility] [address] [place] [address] * MAGNESIUM, SERUM (08/13/2022 10:11 AM EDT) Pathologist [facility] Magnesium 2.3 1.5 - 2.5 mg/dL [facility] 08/13/2022 10:1 1 AM EDT 08/13/2022 3:45 PM EDT Narrative Resulting Agency Comment [id number] Drew Briscoe MD LABORATORY Final Result Performing Organization Address [facility] de Phone Number [facility] [address] [place] [address] * (ABNORMAL) BASIC METABOLIC PANEL WITH (GFR) (08/13/2022 10:11 AM EDT) Pathologist [facility] Glucose 103(H) 65 - 99 [...] needs for GFR calculation. Resulting Agency Comment [id number] Drew Briscoe MD LABORATORY Final Result Performing Organization Address City/State/[facility] Co de Phone Number [facility] [address] [place] [address] documented in this encounter Visit Diagnoses Diagnosis Nystagmus Nystagmus, unspecified documented in this encounter Care Teams Visitor Services Assistant Relationship Specialty Start Date End Date Asha Anders MD [address] [place] [address] PCP - General Internal Medicine 08/13/22 documented as of this encounter
--- OUTSIDE RECORDS SUMMARY | 2024-11-30 08:59 | XMS_ITS | Patient Health Record ---
Author Organization [facility] Address [address] [place] [address] Care Team Providers Care Flight Service Agent Name Role Phone Rogers HORTON, [facility] Primary Care Provider Unavail able [...] Problem Status W/U Status Risk Notes Problem [id number] Screening for colon cancer (V76.51) Active confirmed Plan Of Treatment Future Test Test Name Order Date COLONOSCOPY 12/17/2013 Insurance Providers Payer Name Payer Address Payer Phone Subscriber Number Group Number Insured Name Patient Relationship to Insured Coverage Start Date Coverage End Date [facility] [address] [place] [address] [phone] [id number] ASHLEY DAMICO Self - patient is the insured Medical (General) History Medical History History ICD Code kidney stones elevated cholesterol depression Surgical History Surgery Date(Month/Year) ganglion cyst tonsillectomy bunionectomy
--- OUTSIDE RECORDS SUMMARY | 2024-11-30 08:59 | XMS_ITS | Clinical Summary ---
Author Organization [facility] Address [address] [place] [address] Phone Care Team Providers Care Steam Crane Operator Name Role Phone Asha Anders MD Primary Care Provider [phone] Medications clonazePAM (KLONOPIN) 1 MG tabletIndicatio ns:Nystagmus [...] [place] [id number] [facility] MEDEX SUPPLEMENT MEDICARE PART A & B [email or web address] MEDEX SUPPLEMENT MEDICARE PART A & B [email or web address] MEDEX SUPPLEMENT MEDICARE PART A & B [email or web address] MEDEX SUPPLEMENT MEDICARE PART A & B [email or web address] MEDEX SUPPLEMENT MEDICARE PART A & B [email or web address] MEDEX SUPPLEMENT Care Teams Steam Crane Operator Relationship Specialty [place] [address] [place] [address] [place] [address] PCP - General Internal Medicine 05/03/23 Additional Source Comments The information contained in this document represents components of the legal health record. It is not the complete legal health record.[facility]
--- OUTSIDE RECORDS SUMMARY | 2024-11-30 08:59 | XMS_ITS | Patient Health Record ---
[facility] Organization [facility] [place] Address [address] [place] [address] Care Team Providers Care Street Sweeper Operator Name Role Phone Rogers HORTON, [facility] Primary Care Provider Unavail able Black, Ange Unavailable [phone] Allergies Allergen (clinical drug ingredient) Drug/Non Drug [...] primary osteoarthritis of the ankle and/or foot (406108988) Primary osteoarthriti s, right ankle and foot (M19.071) Active confirmed Problem Localized, primary osteoarthritis of the ankle and/or foot (446358577) Primary osteoarthriti s, left ankle and foot (M19.072) Active confirmed Problem 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 skin (L97.521) Active confirmed Problem Acquired hammer toe of right foot (1902157151969029) Other hammer toe(s) (acquired), right foot (M20.41) Active confirmed Problem Acquired hammer toe of left foot (6938972518364820) Other hammer toe(s) (acquired), left foot (M20.42) Active confirmed Plan Of Treatment Pending Test Test Name Order Date X ray : Foot, left 2V 03/26/2016 BUN, Creatinine 04/27/2019 *Liver Function Test (LFT) 04/27/2019 69550- Debride <25 sq cm 08/14/2013 32062- Debride <25 sq cm 07/22/2014 26226- Debride <25 sq cm 03/26/2016 23842-Pfatfctxw, Toes 07/23/2016 48060- Biopsy of skin lesion 07/31/2013 15999 - Tenotomy, open flexor 03/10/2018 Insurance Providers Payer Name Payer Address Payer Phone Subscriber Number Group Number Insured Name Patient Relationship to Insured Coverage Start Date Coverage End Date [employer] [address] [address] [place] [address] [id number] Kimmy Rios Self - patient is the insured Medical (General) History Medical History History ICD Code mumps measles chicken pox back, hip, knee pain chronic bronchitis Surgical History Surgery Date(Month/Year) tonsillectomy HT/Condyle right 01/20/2015 HT L5, Condyl L5 08/10/2016
== END 2024-11-30 09:45 | disposition home or self-care (01) ==
LOC: HO.HOS 08:37
PROVIDERS: PCP Internal Medicine; Visit Provider Orthopaedic Surgery
DX: M17.11 Unilateral primary osteoarthritis, right knee (principal); M75.102 Unspecified rotator cuff tear or rupture of left shoulder, not specified as traumatic
CPT/HCPCS: 99214; G2211

== ENCOUNTER → 2024-11-30 08:37 | Outpatient (BNVA) | payer MEDICARE, SELFPAY | PROVIDERS: PCP Internal Medicine; Visit Provider Orthopaedic Surgery | DX: M17.11 Unilateral primary osteoarthritis, right knee (principal); M75.102 Unspecified rotator cuff tear or rupture of left shoulder, not specified as traumatic | CPT/HCPCS: 99212 ==

== ENCOUNTER 2025-03-12 10:38 | Outpatient (AMB) | payer MEDICARE, SELFPAY ==
[2025-03-12 11:04] VITALS: BP 124/64; PULSE 74; TEMP 37.1; O2SAT 97; BMI 27.4
--- NOTE | 2025-03-12 11:04 | AM.OFFVISMDC ---
Intake Vital Signs 03/12/25 11:04 Height 5 ft 6 in Weight 170 lb BMI 27.4 BP 124/64 Blood Pressure Location Lt brachial Position Sitting Pulse 74 Pulse Source Pulse Oximeter Temp 98.7 F Temp Source Oral Pulse Oximetry (%) 97 Oxygen Delivery Method Room Air Intake Visit Reasons: AWV Intake Note: Pt is here today for AWV. Allergies Sulfa (Sulfonamide Antibiotics) Allergy (Verified 03/12/25 11:15) Rash Medication List - Last Reconciled 03/12/25 by Asha Anders MD albuterol sulfate 90 mcg/actuation 2 puffs inhalation Q6H PRN aspirin 81 mg PO DAILY atorvastatin 40 mg PO DAILY azelastine 137 mcg (0.137 mL) intranasal BID citalopram 40 mg PO DAILY levothyroxine 75 mcg PO DAILY lisinopril 10 mg PO DAILY lisinopril 5 mg PO DAILY omeprazole 20 mg PO DAILY HPI AWV HPI Details Initiated the conversation about Advanced Directives. Advanced Directives help? patients prepare for current and future decisions about their medical treatment? and place of care. Discussed with patient that it is a process where a patients? current condition and prognosis are reviewed, their wishes for information? regarding their illness are elicited, and likely medical dilemmas are presented? and options discussed. The form can be amended as needed, reviewed yearly and? make changes as needed IPPE/AWV ? year old presents? for her ? Annual? Wellness Visit, initial visit.? Medical / Social History Reviewed? Past Medical History ?Yes? . ? [place]? of Care / Care Team list updated ?Yes . ? Surgical/Hospitalization? History ?Yes . ? Current Medications? (including OTC and supplements) ?Yes . ? Family History ?Yes? . ? Tobacco? Control form ?Yes . ? AUDIT-C (Alcohol use) form? ?Yes . ? Illicit drug use in Social? History ?Yes . ? Current diagnosis of? depression? ?No ? Appropriate PHQ2/PHQ9? completed ?Yes . ? Data entered by ?Medical? Community Health Program Coordinator and reviewed by provider ? Fall Risk ? Fall? History? Have you had any falls with? injury in the past year? ?No . ? Have you had two or more? falls in the past year? ?No . ? Fall Risk Assessment: ?No? falls in the past year . ? HRA filled out by? the patient, reviewed by Provider and scanned. ? IPPE/AWV ? Balance? [place]? ?Yes . ? Tandem? walk ?Yes . ? Walk and? Turn ?Yes . ? Rise from? sit to stand ?Yes . ?Vision? Corrective? lens ?Yes ? Vision? screen ? Up-to-date, has an appointment [] for vision? screening and glaucoma screening ?Hearing? Whisper? test ?pass .? Initiated the conversation about Advanced Directives. Advanced Directives help? patients prepare for current and future decisions about their medical treatment? and place of care. Discussed with patient that it is a process where a patients? current condition and prognosis are reviewed, their wishes for information? regarding their illness are elicited, and likely medical dilemmas are presented? and options discussed. The form can be amended as needed, reviewed yearly and? make changes as needed Written? Plan?Completed. See Patient? Documents. [facility] Medical History Annual physical exam Hypothyroidism COPD (chronic obstructive pulmonary disease) SOB (shortness of breath) COVID-19 virus detected HTN (hypertension) Left shoulder tendinitis Depression Hypercholesteremia Arthritis Surgical History H/O colonoscopy S/P foot surgery History of cataract surgery History of bunionectomy History of tonsillectomy Family History (Updated 03/12/25 @ 11:13 by Kenna Hudson Marshall) Father Heart disease Diabetes mellitus Mother HTN (hypertension) ESRD (end stage renal disease) Maternal Grandmother Breast cancer Sister No problems noted. Son No problems noted. Social History Housing: House Patient Tobacco Use Status: Never used Tobacco e-Cigarette/Vaping Use: Never Used service: No Current occupational status: employed and retired Cognitive needs: No Hearing needs: No Vision needs: Yes Questionnaire Medicare Wellness Checkup [age] What gender do you identify with?: female During the past 4 weeks, how much have you been bothered by emotional problems such as feeling anxious, depressed, irritable, sad or downhearted, and blue?: slightly During the past 4 weeks, has your physical & emotional health limited your social activities with family, friends, neighbors, or groups?: slightly During the past 4 weeks, how much bodily pain have you generally had?: very mild pain During the past 4 weeks, was someone available to help you if you needed & wanted help?: yes, as much as I wanted During the past 4 weeks, what was the hardest physical activity you could do for at least 2 minutes?: moderate Can you get to places out of walking distance without help? (For eg., can you travel alone on buses, taxis or drive your car?): Yes Can you go shopping for groceries or clothes without someone's help?: Yes Can you prepare your own meals?: Yes Can you do your housework without help?: Yes Because of any health problems, do you need the help of another person with your personal care needs such as eating, bathing, dressing or getting around the house?: No Can you handle your own money without help?: Yes During the past 4 weeks, how would you rate your health in general?: very good During the past 4 weeks how have things been going for you?: pretty well Are you having difficulties driving your car?: no Do you always fasten your seat belt when you are in a car?: yes, usually During past 4 weeks, have you been bothered by the following: never: Falling or dizzy when standing up, Sexual problems?, Trouble eating well?, Teeth or denture problems?, Problems using the telephone? and Tiredness or fatigue? Have you fallen 2 or more times in the past year?: No Are you afraid of falling?: No Are you a smoker?: no During the past 4 weeks, how many drinks of wine, beer, or other alcoholic beverages did you have?: 6-9 drinks per week Do you exercise for about 20 minutes 3 or more times a week?: no, I usually do not exercise this much Have you been given information to help with the following?: no: Hazards in your house that might hurt you? and no: Keeping track of your medications? How often do you have trouble taking medicines the way you have been told to take them?: I always take medicine as prescribed How confident are you that you can control & manage most of your health problems?: very confident What is your race?: White Mini Mental State Exam (MMSE) Orientation What is the (year) (season) (date) (day) (month)?: year, season, date, day and month Where are we (state) (county) (town or city) (hospital) (floor)?: state, county, town or city, hospital/clinic and floor Registration Name of 3 unrelated objects clearly and slowly, then ask patient to repeat all 3 of them. (1st repeat determines score. Make sure they can repeat all three): object 1, object 2 and object 3 Attention & Calculation (CHOOSE ONE) Spell WORLD backwards (DLROW): 5 letters Recall Ask patient to repeat the 3 items from question #3.: object 1, object 2 and object 3 Language Show patient a wristwatch & ask what it is. Repeat for pencil.: watch and pencil Ask the patient to repeat the phrase 'No ifs, ands, or buts' after you.: correct Ask the patient to 'take a piece of paper with their right hand' 'fold paper in half' 'place paper on floor': take paper in right hand, fold paper in half and place paper on floor Print the sentence 'CLOSE YOUR EYES' on a piece. If patient actually closes eyes then score.: followed written direction Give patient a blank piece of paper & ask to write a sentence. Score if it contains a noun & verb.: sentence contains subject and verb Score Score: 29 PHQ-9 Over the last 2 weeks, how often have you been bothered by any of the following problems? 1. Little interest or pleasure in doing things: several days 2. Feeling down, depressed, or hopeless: several days 3. Trouble falling or staying asleep, or sleeping too much: several days 4. Feeling tired or having little energy: several days 5. Poor appetite or overeating: several days 6. Feeling bad about yourself - or that you are a failure or have let yourself or your family down: several days 7. Trouble concentrating on things, such as reading the newspaper or watching television: several days 8. Moving or speaking so slowly that other people could have noticed. Or the opposite - being so fidgety or restless that you have been moving around a lot more than usual: not at all 9. Thoughts that you would be better off or of hurting yourself in some way: not at all Total score: 7 Depression Screening Interpretation: Negative Depression Screening Done: Yes 24670 - PHQ-9 Billing: Yes Source: Developed by Drs. Marcos Franco, Crista Chavez, Ben Laird and colleagues, with an educational christiano from [employer]. Review of Systems Const All systems reviewed & are unremarkable except as noted in HPI and below Eyes Reports no additional complaints ENT Reports no additional complaints Card Reports no additional complaints Resp Reports no additional complaints GI Reports no additional complaints Reports no additional complaints Physical Exam Vital Signs: Last Vital Signs Temp 98.7 F 03/12/25 11:04 Pulse 74 03/12/25 11:04 BP 124/64 03/12/25 11:04 Pulse Ox 97 03/12/25 11:04 Oxygen Delivery Method Room Air 03/12/25 11:04 BMI result Body Mass Index 27.4 Const General: no acute distress HEENT Head: Yes normal to inspection Ears: TM's normal bilaterally Eyes General: appearance normal, both eyes and all related structures Neck Neck: Yes no lymphadenopathy and Yes supple Resp Effort & Inspection: normal respiratory effort Auscultation: clear to auscultation bilaterally Cardio Rhythm: regular rhythm Heart sounds: S1 normal heart sound present and S2 normal heart sound present GI Inspection: Yes normal to inspection Palpation (GI): Soft to palpation Percussion: Yes normal to percussion Auscultation: normal bowel sounds Extrem General: Yes no clubbing, cyanosis or edema Assessment & Plan Assessment & Plan (1) HTN (hypertension): Comment: BP goal < 130/80 Code(s): I10 - Essential (primary) hypertension Plan: Continue 15 mg of Lisinopril (2) Hypercholesteremia: Code(s): E78.00 - Pure hypercholesterolemia, unspecified Plan: Continue statin (3) Hypothyroidism: Code(s): E03.9 - Hypothyroidism, unspecified Plan: Continue levothyroxine (4) Postmenopausal: Code(s): Z78.0 - Asymptomatic menopausal state Plan: Check DEXA scan (5) COPD (chronic obstructive pulmonary disease): Comment: PFT mild emphysema 04/2020, CXR nl 04/2020, never smoked Code(s): J44.9 - Chronic obstructive pulmonary disease, unspecified Plan: Continue albuterol PRN Orders: Orders Comprehensive [place]. Panel Fast Today E03.9 - Hypothyroidism, unspecified, E53.8 - Deficiency of other specified B group vitamins, E78.00 - Pure hypercholesterolemia, unspecified, I10 - Essential (primary) hypertension, R73.9 - Hyperglycemia, unspecified Complete Blood Count Auto Diff Today E03.9 - Hypothyroidism, unspecified, E53.8 - Deficiency of other specified B group vitamins, E78.00 - Pure hypercholesterolemia, unspecified, I10 - Essential (primary) hypertension, R73.9 - Hyperglycemia, unspecified Vitamin B12 and Folate Today E03.9 - Hypothyroidism, unspecified, E53.8 - Deficiency of other specified B group vitamins, E78.00 - Pure hypercholesterolemia, unspecified, I10 - Essential (primary) hypertension, R73.9 - Hyperglycemia, unspecified Vitamin D 25-OH Total Today E03.9 - Hypothyroidism, unspecified, E53.8 - Deficiency of other specified B group vitamins, E78.00 - Pure hypercholesterolemia, unspecified, I10 - Essential (primary) hypertension, R73.9 - Hyperglycemia, unspecified UA w Microscopic Today E03.9 - Hypothyroidism, unspecified, E53.8 - Deficiency of other specified B group vitamins, E78.00 - Pure hypercholesterolemia, unspecified, I10 - Essential (primary) hypertension, R73.9 - Hyperglycemia, unspecified XR DEXA axial skeleton Today Z78.0 - Asymptomatic menopausal state Comprehensive [place]. Panel Fast 1 Year E03.9 - Hypothyroidism, unspecified, E78.00 - Pure hypercholesterolemia, unspecified, I10 - Essential (primary) hypertension, J44.9 - Chronic obstructive pulmonary disease, unspecified Complete Blood Count Auto Diff 1 Year E03.9 - Hypothyroidism, unspecified, E78.00 - Pure hypercholesterolemia, unspecified, I10 - Essential (primary) hypertension, J44.9 - Chronic obstructive pulmonary disease, unspecified Vitamin D 25-OH Total 1 Year E03.9 - Hypothyroidism, unspecified, E78.00 - Pure hypercholesterolemia, unspecified, I10 - Essential (primary) hypertension, J44.9 - Chronic obstructive pulmonary disease, unspecified Lipid Panel Today E03.9 - Hypothyroidism, unspecified, E53.8 - Deficiency of other specified B group vitamins, E78.00 - Pure hypercholesterolemia, unspecified, I10 - Essential (primary) hypertension, R73.9 - Hyperglycemia, unspecified TSH reflex Free T4 Today E03.9 - Hypothyroidism, unspecified, E53.8 - Deficiency of other specified B group vitamins, E78.00 - Pure hypercholesterolemia, unspecified, I10 - Essential (primary) hypertension, R73.9 - Hyperglycemia, unspecified Lipid Panel 1 Year E03.9 - Hypothyroidism, unspecified, E78.00 - Pure hypercholesterolemia, unspecified, I10 - Essential (primary) hypertension, J44.9 - Chronic obstructive pulmonary disease, unspecified TSH reflex Free T4 1 Year E03.9 - Hypothyroidism, unspecified, E78.00 - Pure hypercholesterolemia, unspecified, I10 - Essential (primary) hypertension, J44.9 - Chronic obstructive pulmonary disease, unspecified UA w Microscopic 1 Year E03.9 - Hypothyroidism, unspecified, E78.00 - Pure hypercholesterolemia, unspecified, I10 - Essential (primary) hypertension, J44.9 - Chronic obstructive pulmonary disease, unspecified Medications: New albuterol sulfate 90 mcg/actuation 2 puffs inhalation Q6H PRN 6.7 grams 2RF shortness of breath or wheezing famotidine (Pepcid) 40 mg PO BEDTIME 90 tabs 2RF Refilled atorvastatin 40 mg PO DAILY 90 tabs 3RF lisinopril 10 mg PO DAILY 90 tabs 3RF lisinopril take it with 10 mg of Lisinopril 5 mg PO DAILY 90 tabs 3RF citalopram 40 mg PO DAILY 90 tabs 3RF Discontinued omeprazole Discontinued Reason: Doctor's Order 20 mg PO DAILY 90 caps 3RF Quality Reporting (2019) Depression/Bipolar (159/160/161/177) PHQ-9: Total score: 7 Coding Level of Care Code Medicare Subsequent (G0439) Diagnoses HTN (hypertension) I10 Hypercholesteremia E78.00 Hypothyroidism E03.9 Postmenopausal Z78.0 COPD (chronic obstructive pulmonary disease) J44.9 CPT Codes Advance Care Planning - Advance Care Planning discussion: On file, no changes ([id number]) Advance Care Planning - Time spent: 1-15 minutes, on File ([id number]) Additional Codes PHQ-9 - 66442 - PHQ-9 Billing: Yes ([id number]) Advance Care Planning Advance Care Planning discussion: On file, no changes Forms completed: Health Care Proxy Time spent: 1-15 minutes, on File
--- OUTSIDE RECORDS SUMMARY | 2025-03-12 11:22 | XMS_ITS | Encounter Summary ---
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 [facility] [address] [place] [address] Drew Briscoe MD [address] [place] [address] Social History Tobacco Use Types Packs/Day Years [...] of this encounter Procedures * Due to [place] state law, this organization might not be sharing negative HIV tests. Procedure Name Priority Date/Time Associated Diagnosis Comments IMMUNOFIXATION, SERUM Routine 08/13/2022 10:11 AM EDT Nystagmus MAGNESIUM, SERUM Routine 08/13/2022 10:1 1 AM EDT Nystagmus BASIC METABOLIC PANEL WITH (GFR) Routine 08/13/2022 10:11 AM EDT Nystagmus documented in this encounter Results * Due to [place] state law, this organization might not be sharing negative HIV tests. * IMMUNOFIXATION, SERUM (08/13/2022 10:11 AM EDT) Pathologist [facility] Interpretation SEE NOTE [facility] Comment:Normal pattern. No m onoclonal proteins detected. 08/13/2022 10:1 1 AM EDT 08/13/2022 3:45 PM EDT Narrative Resulting Agency Comment [id number] Drew Briscoe MD LABORATORY Final Result Performing Organization Address [facility] Co de Phone Number [facility] [address] [place] [address] * MAGNESIUM, SERUM (08/13/2022 10:11 AM EDT) Pathologist [facility] Magnesium 2.3 1.5 - 2.5 mg/dL [facility] 08/13/2022 10:1 1 AM EDT 08/13/2022 3:45 PM EDT Narrative Resulting Agency Comment [id number] Drew Briscoe MD LABORATORY Final Result Performing Organization Address [facility] de Phone Number [facility] [address] [place] [address] * (ABNORMAL) BASIC METABOLIC PANEL WITH (GFR) (08/13/2022 10:11 AM EDT) Pathologist [facility] Glucose 103(H) 65 - 99 mg/dL [facility] [...] needs for GFR calculation. Resulting Agency Comment [id number] Drew Briscoe MD LABORATORY Final Result Performing Organization Address City/State/[facility] Co de Phone Number [facility] [address] [place] [address] documented in this encounter Visit Diagnoses Diagnosis Nystagmus Nystagmus, unspecified documented in this encounter Care Teams Steam Shovel Oiler Relationship Specialty Start Date End Date Asha Anders MD [address] [place] [address] PCP - General Internal Medicine 08/13/22 documented as of this encounter
--- OUTSIDE RECORDS SUMMARY | 2025-03-12 11:22 | XMS_ITS | Clinical Summary ---
Author Organization [facility] Address [address] [id number] Care Team Providers Care Camp Dishwasher Name Role Phone Asha Anders MD Primary Care Provider [phone] Allergies Active Allergy Reactions Criticality Noted Date Comments Sulfa Antibiotics Maculopapular Rash 08/13/2022 Medications ALBUTEROL SULFATE (PROVENTIL HFA;VENTOLIN HFA) 108 (90 Base) MCG/ACT inhaler INHALE 2 PUFFS BY MOUTH EVERY 6 HOURS NEEDED FOR WHEEZING 3 Active Atorvastatin Calcium (LIPITOR) 40 MG tablet 40 mg 1 (one) time each day 3 Active Levothyroxine Sodium (SYNTHROID, LEVOTHROID) 50 MCG tablet Take 50 mcg by mouth 1 (one) time each day 3 Active Lisinopril (PRINIVIL,ZESTRIL ) 10 MG tablet Take 10 mg by mouth 1 (one) time each day 3 Active Lisinopril (PRINIVIL,ZESTRIL ) 5 MG tablet 5 mg 1 (one) time each day 3 Active Omeprazole (PriLOSEC) [address] capsule Take 20 mg by mouth 1 (one) time each day 3 Active Citalopram Hydrobromide (CeleXA) 40 MG tablet Take 40 mg by mouth 1 (one) time each day 3 Active Baclofen (LIORESAL) 10 MG tablet Take one 10 mg tablet by mouth twice a day. 60 tablet 3 Active Baclofen (LIORESAL) 10 MG tablet Take one tablet by mouth three times a day. 90 tablet 1 4 Active Immunizations Immunization Administration Dates Next Due COVID-19, mRNA (Pfizer Pre F all 2022) Monovalent, 30 mcg/0.3 ml 01/19/2021,05/20/2020,04/21/2020 Covid-19, mRNA (Pfizer Comir isabell) Seasonal, 30 mcg/0.3 mL (12+) 02/14/2024,03/27/2023 Covid-19, mRNA (Pfizer Pre F all 2022) Bivalent, 30 mcg/0.3 ml merlyn-sucrose (12+) dose 02/28/2022 Influenza, Quad, Inactivated , Adjuvanted, Preser Fr 03/27/2023,02/28/2022 Influenza,adjuvanted,trivale nt,PF (Fluad) 02/14/2024 Influenza,injectable,quad,Prsrv Fr 01/24,01/19/2020,02/27/2019,2017 Influenza,injectable,quad,pr eservativ e 02/01/2017 Influenza,seasonal,trivalent ,preserva tive (FLUZONE MDV) 02/13/2016 PCV-21 07/27/2024 Rsv Recombinant Bivalent, 0. 5 ML (Abrysvo) 07/27/2024 Tdap 10/31/2020 Zoster (Shingrix) 07/27/2024 Zoster (Zostavax) 09/27/2012 Social History Tobacco Use Types Packs/Day Years Used Date Smoking Tobacco: Never Smokeless Tobacco: Never Intimate Partner Violence Answer Date R ecorded Fear of Current or Ex-Partner Not on file Emotionally Abused Not on file 11/30/2022 Physically Abused Not on file 11/30/2022 Sexually Abused Not on file 11/30/2022 Feel Safe at Home Not on file 11/30/2022 Comments Unknown Sex and Gender Information Value Date Recorded Sex Assigned at Not on file Legal Sex Female 1:44 PM EST Gender Identity Not on file Sexual Orientation Not on file Last Filed Vital Signs Vital Sign Reading Time Taken Comments Blood Pressure 126/66 08/13/2022 8:57 AM EDT Pulse 80 08/13/2022 8:57 AM EDT Temperature - - Respiratory Rate - - Oxygen Saturation - - Inhaled Oxygen Concentration - - Weight 75.8 kg (167 lb) 08/13/2022 8:57 AM EDT Height - - Body Mass Index - - Plan of Treatment Health Maintenance Due Date Last Done Comments Hepatitis C Screening 1950 Mammogram/Breast Imaging 1991 Colon Cancer Screening 11/12/1996 Bone Density 11/12/2016 Zoster (Shingrix) (3 of 3) 09/21/2024 07/27/2024, COVID-19 Vaccine ( season) 2024 02/14/2024, 03/27/2023, 02/28/2022, Additional history exists Influenza (#1) 2024 02/14/2024, 09/2022, 02/28/2022, Additional history exists DTaP/Tdap/Td (2 - Td or Tdap) 10/31/2030 10/31/2020 Zoster (Zostavax) Discontinued 09/27/2012 Eye/Retina Exam Discontinued 05/31/2022, 05/31/2022 Tonometry Discontinued 05/31/2022, 05/31/2022 Pneumococcal 50+ years Completed 07/27/2024 RSV Completed 07/27/2024 HPV Vaccine (No Doses Required) Completed Hep A Aged Out No longer eligi ble based on patient's age to complete this topic Hep B Aged Out No longer eligi ble based on patient's age to complete this topic Hib Aged Out No longer eligi ble based on patient's age to complete this topic Meningococcal ACWY Aged Out No longer eligible based on patient's age to complete this topic Pap Smear Discontinued Procedures * Due to [place] [employer] law, this organization might not be sharing negative HIV tests. Procedure Name Priority Date/Time Associated Diagnosis Comments COMPREHENSIVE EYE EXAM 05/31/2022 from Last 3 Months or Most Recently Relevant to Health Maintenance Results * Due to [place] [employer] law, this organization might not be sharing negative HIV tests. * COMPREHENSIVE EYE EXAM (05/31/2022) Marcos TYLER PROCEDURE Final Result from Last 3 Months or Most Recently Relevant to Health Maintenance Insurance MEDICARE PART B [facility] FFS MEDEX-SUPPLEMENTAL Care Teams Camp Dishwasher Relationship Specialty Start Date End Date Asha Anders MD [address] [place] [address] PCP - General Internal Medicine 08/13/22
--- OUTSIDE RECORDS SUMMARY | 2025-03-12 11:22 | XMS_ITS | Patient Health Record ---
Author [facility] [place] Address [address] [place] [address] Care Team Providers Care Industrial Painter Name Role Phone Rogers HORTON, [facility] Primary Care Provider Unavail able Black, Ange Unavailable [phone] Allergies Allergen (clinical drug ingredient) Drug/Non Drug [...] primary osteoarthritis of the ankle and/or foot (189614467) Primary osteoarthriti s, right ankle and foot (M19.071) Active confirmed Problem Localized, primary osteoarthritis of the ankle and/or foot (306810912) Primary osteoarthriti s, left ankle and foot (M19.072) Active confirmed Problem 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 skin (L97.521) Active confirmed Problem Acquired hammer toe of right foot (8411483039314804) Other hammer toe(s) (acquired), right foot (M20.41) Active confirmed Problem Acquired hammer toe of left foot (5161152803861569) Other hammer toe(s) (acquired), left foot (M20.42) Active confirmed Plan Of Treatment Pending Test Test Name Order Date X ray : Foot, left 2V 03/26/2016 BUN, Creatinine 04/27/2019 *Liver Function Test (LFT) 04/27/2019 51562- Debride <25 sq cm 08/14/2013 23584- Debride <25 sq cm 07/22/2014 98385- Debride <25 sq cm 03/26/2016 73457-Idwqaiijo, Toes 07/23/2016 77676- Biopsy of skin lesion 07/31/2013 04733 - Tenotomy, open flexor 03/10/2018 Insurance Providers Payer Name Payer Address Payer Phone Subscriber Number Group Number Insured Name Patient Relationship to Insured Coverage Start Date Coverage End Date Blue Benefits [address] [address] [place] [address] [id number] Kimmy Rios Self - patient is the insured Medical (General) History Medical History History ICD Code mumps measles chicken pox back, hip, knee pain chronic bronchitis Surgical History Surgery Date(Month/Year) tonsillectomy HT/Condyle right 01/20/2015 HT L5, Condyl L5 08/10/2016
--- OUTSIDE RECORDS SUMMARY | 2025-03-12 11:22 | XMS_ITS | Patient Health Record ---
Author Organization [facility] Address [address] [place] [address] Care Team Providers Care Marine Operations Coordinator Name Role Phone Rogers HORTON, [facility] Primary Care Provider Unavail able Shar Redding Jr Unavailable Allergies Allergen (clinical drug ingredient) Drug/Non Drug Allergy documented on EMR Reaction Allergy Type Onset Date Status Sulfa Unknown Drug Allergy Active Reason For Referral No Information Medications Medication SIG (Take, Route, Frequency, Duration) Notes Start Date End Date Status Vitamin D3 1000 UNIT Capsule 1 capsule Orally Once a day Active Fish Oil 1000 MG Capsule 1 capsule Orall y Once a day Active Multivitamin Liquid Orally Active Effexor XR 75 MG Capsule Extended Release 24 Hour 1 capsule with food Orally Once a day Active Suprep Bowel Prep 1 Solution as directed Orally 1; Duration: 1 dose 12/17/2013 Active Simvastatin 20 MG Tablet 1 tablet in the evening Orally Once a day Active CeleBREX 200 MG Capsule 1 capsule Orally Once a day Active Calcium 600 MG Tablet 1 tablet with meal s Orally Twice a day Active Citalopram Hydrobromide 40 MG Tablet 0.5 tablet Orally Once a day Active Social History Social History Additional Details Category Social Info Options Details Miscellaneous: Marital status: 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 Problems Problem Type SNOMED Code ICD Code Onset Dates Problem Status W/U Status Risk Notes Problem Screening for colon cancer (872203916) Screening for colon cancer (V76.51) Active confirmed Plan Of Treatment Future Test Test Name Order Date COLONOSCOPY 12/17/2013 Insurance Providers Payer Name Payer Address Payer Phone Subscriber Number Group Number Insured Name Patient Relationship to Insured Coverage Start Date Coverage End Date [facility] [address] [facility] [place], [place] [phone] [id number] ASHLEY DAMICO Self - patient is the insured Medical (General) History Medical History History ICD Code kidney stones elevated cholesterol depression Surgical History Surgery Date(Month/Year) ganglion cyst tonsillectomy bunionectomy
== END 2025-03-12 12:52 | disposition home or self-care (01) ==
LOC: HO.HMCC 10:39
PROVIDERS: PCP Internal Medicine; Visit Provider Internal Medicine
DX: Z00.00 Encounter for general adult medical examination without abnormal findings (principal); I10 Essential (primary) hypertension; J44.9 Chronic obstructive pulmonary disease, unspecified; E78.00 Pure hypercholesterolemia, unspecified; E03.9 Hypothyroidism, unspecified; Z78.0 Asymptomatic menopausal state

== ENCOUNTER → 2025-03-12 10:38 | Outpatient (BNVA) | payer MEDICARE, SELFPAY | PROVIDERS: PCP Internal Medicine; Visit Provider Internal Medicine | DX: Z13.31 Encounter for screening for depression (principal) | CPT/HCPCS: 96127 ==

== ENCOUNTER 2025-03-15 07:34 | Outpatient (REF) | payer MEDICARE, SELFPAY ==
--- OUTSIDE RECORDS SUMMARY | 2021-12-10 23:00 | XMS_ITS | Encounter Summary ---
Author Organization [facility] Address [address] [facility] [address] [place] [phone] Phone Care Team Providers Care Clinical Rehabilitation Aide Name Role Phone Unavailable Primary Care Provider Unavailabl e Encounter Details Date Type Department Care Team ([facility] st Contact Info) Description 12/11/2021 Hospital Encounter [facility] [address] [place] [id number] Jovi Nunez MD [address] [place] [address] [email or web address] Social History Tobacco Use Types Packs/Day Years Used Date Smoking Tobacco: Never Assessed Education Answer Date Recorded Are you interested in more education? Not on mary e 05/10/2023 Are you concerned about learning? Not on file 05/10/2023 No 05/10/2023 No 05/10/2023 Digital Access Answer Date Recorded No 05/10/2023 No 05/10/2023 Reliable internet access at home? Not on file 05/10/2023 Device with a working camera? Not on file Comments Unknown Sex and Gender Information Value Date Recorded Sex Assigned at Female 05/15/2023 10:14 AM EST Legal Sex Female 10:58 AM EST Gender Identity Female 05/15/2023 10:14 AM EST Sexual Orientation Straight 05/15/2023 10 :14 AM EST documented as of this encounter Plan of Treatment Not on file documented as of this encounter Procedures Procedure Name Priority Date/Time Associated Diagnosis Comments MRI BRAIN OUTSIDE (NO INTERPRETATION) Routine 12/11/2021 12:00 AM EDT documented in this encounter Results * MRI Brain Outside (No Interpretation) (12/11/2021 12:00 AM EDT) Narrative [facility] - 08/07/2023 1:53 PM EDT This study is for PACS storage only and not for interpretation. us Jovi Nunez MD IMG OUTSIDE IMAGING W/OUT INTE RPRETATION Final Result [facility] documented in this encounter Visit Diagnoses Not on filedocumented in this encounter Additional Source Comments The information contained in this document represents components of the legal health record. It is not the complete legal health record.[facility]
--- OUTSIDE RECORDS SUMMARY | 2022-09-06 23:00 | XMS_ITS | Encounter Summary ---
Author Organization [facility] Address [address] [facility] [address] [place] [phone] Phone Care Team Providers Care Business Risk Consultant Name Role Phone Unavailable Primary Care Provider Unavailabl e Encounter Details Date Type Department Care Team ([facility] st Contact Info) Description 09/07/2022 Hospital Encounter [facility] [address] [place] [id number] Jovi Nunez MD [address] [place] [phone] [email or web address] Social History Tobacco Use Types Packs/Day Years [...] Comments MRI BRAIN OUTSIDE (NO INTERPRETATION) Routine 09/07/2022 12:00 AM EDT documented in this encounter Results * MRI Brain Outside (No Interpretation) (09/07/2022 12:00 AM EDT) Narrative [facility] [...] It is not the complete legal health record.[facility]
--- OUTSIDE RECORDS SUMMARY | 2022-12-12 23:00 | XMS_ITS | Encounter Summary ---
Author Organization [facility] Address [address] [facility] [address] [place] [phone] Phone Care Team Providers Care Phlebotomist Medical Lab Assistant Name Role Phone Unavailable Primary Care Provider Unavailabl e Encounter Details Date Type Department Care Team ([facility] st Contact Info) Description 12/13/2022 Hospital Encounter [facility] [address] [place] [phone] Jovi Nunez MD [address] [place] [address] [email or web address] Social History Tobacco Use Types Packs/Day [...] Comments MRI BRAIN OUTSIDE (NO INTERPRETATION) Routine 12/13/2022 12:00 AM EDT documented in this encounter Results * MRI Brain Outside (No Interpretation) (12/13/2022 12:00 AM EDT) Narrative [facility] - 08/07/2023 1:55 PM EDT This study is for PACS storage only and not for interpretation. us Jovi Nunez MD IMG OUTSIDE IMAGING W/OUT INTE RPRETATION Final Result [facility] documented in this encounter Visit Diagnoses Not on filedocumented in this encounter Additional Source Comments The information contained in this document represents components of the legal health record. It is not the complete legal health record.[facility]
--- OUTSIDE RECORDS SUMMARY | 2025-03-15 07:36 | XMS_ITS | Patient Health Record ---
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 Problems Problem Type SNOMED Code ICD Code Onset Dates Problem Status W/U Status Risk Notes Problem Screening for colon cancer (833757178) Screening for colon cancer (V76.51) Active confirmed Plan Of Treatment Future Test Test Name Order Date COLONOSCOPY 12/17/2013 Insurance Providers Payer Name Payer Address Payer Phone Subscriber Number Group Number Insured Name Patient Relationship to Insured Coverage Start Date Coverage End Date [facility] [address] [facility] [place], [place] [phone] [id number] ASHLEY DAMICO Self - patient is the insured Medical (General) History Medical History History ICD Code kidney stones elevated cholesterol depression Surgical History Surgery Date(Month/Year) ganglion cyst tonsillectomy bunionectomy
--- OUTSIDE RECORDS SUMMARY | 2025-03-15 07:36 | XMS_ITS | Clinical Summary ---
Author Organization [facility] Address [address] [id number] Care Team Providers Care Port Patrol Officer Name Role Phone Asha Anders MD Primary Care Provider [phone] Allergies Active Allergy Reactions Criticality Noted Date [...] Smear Discontinued Procedures * Due to [place] [employer] law, this organization might not be sharing negative HIV tests. Procedure Name Priority Date/Time Associated Diagnosis Comments COMPREHENSIVE EYE EXAM 05/31/2022 from Last 3 Months or Most Recently Relevant to Health Maintenance Results * Due to [place] [employer] law, this organization might not be sharing negative HIV tests. * COMPREHENSIVE EYE EXAM (05/31/2022) Marcos TYLER PROCEDURE Final Result from Last 3 Months or Most Recently Relevant to Health Maintenance Insurance MEDICARE PART B [facility] FFS MEDEX-SUPPLEMENTAL Care Teams Port Patrol Officer Relationship Specialty Start Date End Date Asha Anders MD [address] [place] [address] PCP - General Internal Medicine 08/13/22
--- OUTSIDE RECORDS SUMMARY | 2025-03-15 07:36 | XMS_ITS | Clinical Summary ---
Author Organization [facility] Address [address] [place] [address] Phone Care Team Providers Care Helicopter Officer Name Role Phone Asha Anders MD Primary Care Provider [phone] Medications clonazePAM (KLONOPIN) 1 MG tabletIndicatio ns:Nystagmus [...] 11/12/2001 OSTEOPOROSIS SCREENING INITI AL (ONE-TIME) 11/12/2016 INFLUENZA VACCINE (#1) 2024 COVID-19 VACCINE (1 - 2024-2 6 season) 2024 RSV VACCINE (1 - 1-dose 75+ series) [...] file Insurance MEDICARE PART A & B [facility] MEDEX SUPPLEMENT MEDICARE PART A & B [facility] MEDEX SUPPLEMENT MEDICARE PART A & B [employer] MEDEX SUPPLEMENT MEDICARE PART A & B [employer] MEDEX SUPPLEMENT MEDICARE PART A & B [employer] MEDEX SUPPLEMENT MEDICARE PART A & B [employer] MEDEX SUPPLEMENT Care Teams Helicopter Officer Relationship Specialty Start Date End Date Asha Anders MD [address] [place] [address] PCP - General Internal Medicine 05/03/23 Additional Source Comments The information contained in this document represents components of the legal health record. It is not the complete legal health record.[facility]
--- OUTSIDE RECORDS SUMMARY | 2025-03-15 07:36 | XMS_ITS | Encounter Summary ---
Author Organization [facility] Address [address] [place] [address] Care Team Providers Care Bronze Chaser Name Role Phone Asha Anders MD Primary Care Provider [phone] Encounter Details Date Type Department Care Team ([facility] st Contact Info) Description 08/13/2022 Orders Only [facility] Neurology [address] [facility] [address] [place] [address] Drew Briscoe MD [address] [place] [address] Social History Tobacco Use Types Packs/Day Years [...] of this encounter Procedures * Due to [place] state law, this organization might not be sharing negative HIV tests. Procedure Name Priority Date/Time Associated Diagnosis Comments IMMUNOFIXATION, SERUM Routine 08/13/2022 10:11 AM EDT Nystagmus MAGNESIUM, SERUM Routine 08/13/2022 10:1 1 AM EDT Nystagmus BASIC METABOLIC PANEL WITH (GFR) Routine 08/13/2022 10:11 AM EDT Nystagmus documented in this encounter Results * Due to [place] state law, this organization might not be sharing negative HIV tests. * IMMUNOFIXATION, SERUM (08/13/2022 10:11 AM EDT) Pathologist [facility] Interpretation SEE NOTE [facility] Comment:Normal pattern. No m onoclonal proteins detected. 08/13/2022 10:1 1 AM EDT 08/13/2022 3:45 PM EDT Narrative Resulting Agency Comment [id number] Drew Briscoe MD LABORATORY Final Result Performing Organization Address [facility] Co de Phone Number [facility] [address] [place] [address] * MAGNESIUM, SERUM (08/13/2022 10:11 AM EDT) Pathologist [facility] Magnesium 2.3 1.5 - 2.5 mg/dL [facility] 08/13/2022 10:1 1 AM EDT 08/13/2022 3:45 PM EDT Narrative Resulting Agency Comment [id number] Drew Briscoe MD LABORATORY Final Result Performing Organization Address [facility] de Phone Number [facility] [address] [place] [address] * (ABNORMAL) BASIC METABOLIC PANEL WITH (GFR) (08/13/2022 10:11 AM EDT) Pathologist [facility] Glucose 103(H) 65 - 99 mg/dL [facility] [...] needs for GFR calculation. Resulting Agency Comment [id number] Drew Briscoe MD LABORATORY Final Result Performing Organization Address City/State/[facility] Co de Phone Number [facility] [address] [place] [address] documented in this encounter Visit Diagnoses Diagnosis Nystagmus Nystagmus, unspecified documented in this encounter Care Teams Bronze Chaser Relationship Specialty Start Date End Date Asha Anders MD [address] [place] [address] PCP - General Internal Medicine 08/13/22 documented as of this encounter
--- OUTSIDE RECORDS SUMMARY | 2025-03-15 07:36 | XMS_ITS | Patient Health Record ---
Author [facility] [place] Address [address] [place] [address] Care Team Providers Care Cartographic Designer Name Role Phone Rogers HORTON, [facility] Primary Care Provider Unavail able Black, Ange Unavailable [phone] Allergies Allergen (clinical drug ingredient) Drug/Non Drug [...] primary osteoarthritis of the ankle and/or foot (223174425) Primary osteoarthriti s, right ankle and foot (M19.071) Active confirmed Problem Localized, primary osteoarthritis of the ankle and/or foot (682123771) Primary osteoarthriti s, left ankle and foot (M19.072) Active confirmed Problem 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 skin (L97.521) Active confirmed Problem Acquired hammer toe of right foot (3359471343770056) Other hammer toe(s) (acquired), right foot (M20.41) Active confirmed Problem Acquired hammer toe of left foot (7942315030698324) Other hammer toe(s) (acquired), left foot (M20.42) Active confirmed Plan Of Treatment Pending Test Test Name Order Date X ray : Foot, left 2V 03/26/2016 BUN, Creatinine 04/27/2019 *Liver Function Test (LFT) 04/27/2019 43801- Debride <25 sq cm 08/14/2013 25545- Debride <25 sq cm 07/22/2014 40120- Debride <25 sq cm 03/26/2016 59645-Jfmuhhisx, Toes 07/23/2016 38081- Biopsy of skin lesion 07/31/2013 16151 - Tenotomy, open flexor 03/10/2018 Insurance Providers Payer Name Payer Address Payer Phone Subscriber Number Group Number Insured Name Patient Relationship to Insured Coverage Start Date Coverage End Date Blue Benefits [address] [address] [place] [address] [id number] Kimmy Rios Self - patient is the insured Medical (General) History Medical History History ICD Code mumps measles chicken pox back, hip, knee pain chronic bronchitis Surgical History Surgery Date(Month/Year) tonsillectomy HT/Condyle right 01/20/2015 HT L5, Condyl L5 08/10/2016
[2025-03-15 10:08] LABS: MANUAL DIFF FLAG NO
[2025-03-15 10:15] LABS: Hematocrit 43.6 % (37.0-47.0); Hemoglobin 14.5 g/dl (12.0-16.0); Imm Gran Abs Auto 0.02 X10*3/uL (0.00-0.03); Imm Gran Pct Auto 0.3 % (0.0-0.4); Lymphocytes Absolute Auto 2.5 X10*3/uL (1.2-4.9); Mean Corpuscular HGB Conc 33.3 g/dl (31.0-35.0); Mean Corpuscular Hemoglobin 33.6 pg (27.0-33.0); Mean Corpuscular Volume 100.9 fL (80.0-98.0); NRBC Abs Auto 0.000 X10*3/uL (0.0-0.012); NRBC Pct Auto 0.0 /100WBC (0.0-0.2); Platelet Count 211 X10*3/uL (160-400); Red Blood Count 4.32 X10*6/uL (4.20-5.50); White Blood Count 5.8 X10*3/uL (4.8-10.8)
[2025-03-15 10:20] LABS: Appearance Urine Clear; Glucose Urine UA Negative (Negative); PH 5.0 (5.0-9.0); Specific Gravity - Urine 1.020 (1.005-1.025); UMIC TRIGGER UA YES
[2025-03-15 10:54] LABS: Alanine Aminotransferase 33 U/L (0-31); Albumin Level 4.8 g/dL (3.5-5.0); Alkaline Phosphatase 88 U/L (39-117); Anion Gap 12 (12-20); Aspartate Amino Transferase 29 U/L (5-31); Blood Urea Nitrogen 20 mg/dL (9-16); Calcium 9.3 mg/dL (8.4-10.2); Carbon Dioxide 26 mmol/L (22-29); Chloride 107 mmol/L (96-108); Cholesterol 246 mg/dL (<200); Estimated Glomerular Filt Rate > 60; HDL Cholesterol 74 mg/dL (>40); Potassium 4.4 mmol/L (3.3-5.1); Sodium 141 mmol/L (135-145); Total Protein 7.2 g/dL (6.5-8.0); Triglycerides 203 mg/dL (<150)
[2025-03-15 11:05] LABS: Folate 13.0 ng/mL (> or = 4.0); Vitamin B12 337 pg/mL (200-900)
== END 2025-03-15 07:35 | disposition home or self-care (01) ==
LOC: HO.HMGCLDS 07:34
PROVIDERS: PCP Internal Medicine; Visit Provider Internal Medicine
DX: E53.8 Deficiency of other specified B group vitamins (principal); E78.00 Pure hypercholesterolemia, unspecified; R73.9 Hyperglycemia, unspecified; E03.9 Hypothyroidism, unspecified; I10 Essential (primary) hypertension; Z13.21 Encounter for screening for nutritional disorder
CPT/HCPCS: 36415; 80053; 80061; 81001; 82306; 82607; 82746; 84443; 85025